=== PATIENT | female | born 1970 | race African-American/Black ===

== ENCOUNTER 2016-03-18 18:40 | Emergency (ER) | payer OTHER ==
[2016-03-18] MEDS ORDERED: DILAUDID IM ONE (20:45)
[2016-03-18] MEDS ORDERED: PHENERGAN IM ONE (20:46)
--- NOTE | 2016-03-18 20:51 | PROVIDER DOCUMENTATION ---
HPI-General Adult - General Chief Complaint: Extremity Pain Stated Complaint: LT LEG PAIN Time Seen by Provider: 03/18/16 20:37 Source: patient Allergies/Adverse Reactions: Patient Allergies Allergy/AdvReac Type Severity Reaction Status Date / Time butalbital [From Fioricet] Allergy Severe NAUSEA Verified 02/20/16 22:53 caffeine [From Fioricet] Allergy Severe NAUSEA Verified 02/20/16 22:53 cyclobenzaprine HCl * Allergy Severe ANAPHYLAXIS Verified 02/20/16 22:53 [From Flexeril] methocarbamol [From Robaxin] Allergy Severe ANAPHYLAXIS Verified 02/20/16 22:53 NSAIDS (Non-Steroidal Allergy Severe ANAPHYLAXIS Verified 02/20/16 22:53 Anti-Inflamma hydrocodone bitartrate * Allergy Intermediate RASH Verified 02/20/16 22:53 [From Lortab] ketorolac Allergy Mild HIVES Verified 02/20/16 22:53 meperidine HCl * Allergy Mild RASH Verified 02/20/16 22:53 [From Demerol] morphine Allergy Mild RASH Verified 02/20/16 22:53 naproxen sodium * Allergy Mild RASH Verified 02/20/16 22:53 [From Aleve] oxycodone HCl * Allergy Mild RASH Verified 02/20/16 22:53 [From Percocet] tramadol HCl * [From Ultram] Allergy Mild RASH Verified 02/20/16 22:53 adhesive Allergy Unknown RASH Verified 02/20/16 22:53 acetaminophen [From Tylenol] Allergy RASH Verified 02/20/16 22:53 tramadol Allergy RASH Verified 02/20/16 22:53 diphenhydramine HCl * AdvReac Severe VOMITING Verified 02/20/16 22:53 [From Tylenol PM] aspirin AdvReac Mild DIARRHEA Verified 02/20/16 22:53 ibuprofen [From Motrin] AdvReac Mild DIARRHEA Verified 02/20/16 22:53 ketorolac tromethamine * AdvReac Mild DIZZINESS Verified 02/20/16 22:53 [From Toradol] naproxen AdvReac Mild DIARRHEA Verified 02/20/16 22:53 ondansetron HCl * AdvReac NAUSEA Verified 02/20/16 22:53 [From Zofran (as hydrochloride)] Home Medications: Clonidine [Catapres] 0.3 mg PO BID 02/02/15 Alprazolam [Xanax] 1 mg PO QHS 01/25/16 Amlodipine Besylate 10 mg PO DAILY 02/10/16 - History of Present Illness -Gen Adult Nature of Presenting Problems: Pt is a 45 yof who presents to ER with CC of L inguinal pain that radiates to her L hip. Pt reports she has had this pain since January, Saw PCP earlier today and was sent to ER to have an X-ray of her L leg. Pt reports she has not taken any medicine for her leg pain and her PCP wanted to get an X-ray before prescribing any medicine. Location of Pain/Injury: reports: pelvis (L inguinal) Pain Radiation: reports: other (L hip) Quality of Pain: reports: cramping Severity: reports: mild Onset/Duration: reports: other ("Since January") Timing: reports: still present Modifying Factors: worse with: exercise, movement Associated Symptoms: reports: diarrhea, sensory/motor loss ("L leg goes numb when I walk too much") Review of Systems - Adult - REVIEW OF SYSTEMS - ADULT Constitutional: denies: chills, fever, fatique Eyes: reports: no symptoms reported Ears, Nose, Mouth & Throat: reports: no symptoms reported Cardiovascular: reports: no symptoms reported Respiratory: reports: no symptoms reported Gastrointestinal: reports: diarrhea. denies: abdominal pain, hematemesis, constipation, nausea, poor appetite, vomiting Genitourinary: reports: no symptoms reported Musculoskeletal: reports: frequent leg cramps, joint pain (L hip). denies: bone pain, back pain, joint swelling, muscle aches, muscle weakness, neck pain Integumentary: reports: no symptoms reported Neurological: reports: no symptoms reported Psychiatric: reports: no symptoms reported Endocrine: reports: no symptoms reported Hematologic/Lymphatic: reports: no symptoms reported Allergic/Immunologic: reports: no symptoms reported All Other Systems: Reviewed and Negative Past History - Adult - PAST MEDICAL HISTORY-ADULT Review of Records: reports: Nursing Assessment Review, Medications Reviewed Cardiovascular: reports: CHF, HTN Respiratory: reports: sleep apnea Psychiatric: reports: depression - PRIOR SURGERIES/PROCEDURES Surgical/Procedure History: reports: appendectomy, cholecystectomy, hysterectomy , BTL, , tonsillectomy, back/neck - IMMUNIZATION STATUS Childhood Immunizations: See Nurse Assessment Flu Vaccine: See Nurse Assessment Physical Exam-General - PHYSICAL EXAM-ADULT Initial Vital Signs Reviewed: Yes - CONSTITUTIONAL General Appearance: appears well, alert, no apparent distress - EYES Eyes: PERRL/EOMI, pink conjunctivae, fundi clear, no AV nicking - HEAD, EARS, NOSE, MOUTH & THROAT HENMT: normocephalic/atraumatic, moist mucous membranes, normal ENT inspection - NECK Neck: non-tender, full range of motion, supple - RESPIRATORY Respiratory: chest non-tender, lungs clear, normal breath sounds - CARDIOVASCULAR Cardiovascular: normal peripheral pulses, regular rate, rhythm - GASTROINTESTINAL (ABDOMEN) Abdominal Exam: normal bowel sounds, non tender, soft - LYMPHATIC Lymphatic: no adenopathy - MUSCULOSKELETAL Back Exam: no CVA tenderness, no vertebral tenderness Extremity: normal range of motion, normal gait, tenderness (Mild L inguinal tenderness) - SKIN Integumentary: normal color, normal turgor, warm/dry - NEUROLOGIC Neurologic: grossly normal, no motor/sensory deficits - PSYCHIATRIC Psych/Mental Status: normal mood/affect, normal thought content, normal thought process, oriented x 3 Progress - PLAN OF CARE/RESULTS Progress/Plan/Lab Results: Vital Signs - 24 hr 03/18/16 18:43 Temperature 97.5 F L Pulse Rate 85 Respiratory 20 Rate Blood Pressure 204/120 O2 Sat by Pulse 100 Oximetry Orders Category Date Time Status Hydromorphone [Dilaudid] Med 03/18/16 20:45 Discontinued 1 mg IM NOW ONE Promethazine [Phenergan] Med 03/18/16 20:46 Discontinued 25 mg IM NOW ONE Departure - Departure Time of Disposition Order: 20:51 DIAGNOSIS: Chronic leg pain Qualifiers: Laterality: left Qualified Code(s): M79.605 - Pain in left leg; G89.29 - Other chronic pain Disposition: HOME 01 Certified Medical Emergency: Emergent Condition: Stable Additional Instructions: ED Follow Up Instructions: You have been treated by a care provider in the Emergency Department. These instructions are being provided to you so you can have an understanding of how to care for yourself upon discharge. Upon discharge from the Emergency Department, you are responsible for making arrangements for follow-up care by a physician of your choice. Take all prescribed medications as directed. Return to the Emergency Department immediately for any new or worsening symptoms. You may call the Physician Referral phone number at [phone] to obtain a list of Physicians who are taking new patients. Attestation - Scribe Verification/Attestation Scribe:: Billy Zimmer Acting as Scribe for:: Jesse Curran Scribe documention review:: This chart was documented by a scribe and accurately reflects the service the provider performed and the decisions made by the provider.
[2016-03-18 21:42] VITALS: BP 180/96
== END 2016-03-18 21:42 | disposition home or self-care (01) ==
LOC: ED 18:40
DX: G89.29 Other chronic pain (principal); M79.605 Pain in left leg; R10.32 Left lower quadrant pain; M25.552 Pain in left hip; R19.7 Diarrhea, unspecified; R20.0 Anesthesia of skin; R25.2 Cramp and spasm; I10 Essential (primary) hypertension; Z79.899 Other long term (current) drug therapy
CPT/HCPCS: 96372; J1170; J2550

== ENCOUNTER 2016-05-12 17:02 | Emergency (ER) ==
[2016-05-12] MEDS ORDERED: CATAPRES ONE (17:20)
[2016-05-12] MEDS ORDERED: CATAPRES PO ONE (17:22)
--- NOTE | 2016-05-12 17:22 | PROVIDER DOCUMENTATION ---
HPI-Musculoskeletal Pain/Inj - GENERAL Chief Complaint: Groin Pain Stated Complaint: LEG PAIN Time Seen by Provider: 05/12/16 17:20 Source: patient - HX OF PRESENT ILLNESS-MUSKULOSKELTAL Nature of Presenting Problem: Pt c/o left inner thigh pain. Pt fell 3 days ago when her leg gave out on her and fell on left hip. No hip pain since fall. Patient states there is a knot to inside of her left thigh. No swelling to leg. Pt able to walk without any difficulty. Quality of Pain: reports: sharp, stabbing Severity in ED: moderate Onset/Duration: 3 days ago Timing: getting worse Modifying Factors: improves with: nothing Any recent injury?: Yes (Pt had sudden onset of pain to elft inner thigh that caused her to fall) Locality of Occurance: Other Similar Symptoms Previously?: No Recently seen or treated by another doctor?: No - FALL INJURY Location of Pain/Injury: reports: lower extremity Pain Radiation: reports: no radiation Reason for Fall: reports: other Symptoms prior to fall:: reports: none Loss of Consciousness: no loss of consciousness Injury Associated Symptoms: reports: muscle aches - BACK & NECK PAIN/INJURY Back/Neck Pain Location: denies: C-spine, T-spine, lumbar spine, sacrum, coccyx , paraspinous muscles, other Back/Neck Pain Radiation: denies: headache, shoulders, arm(s), Buttocks, Upper Legs, Lower Legs, Feet, Other Context / Method of Injury: denies: unknown, direct blow, fall, lifting, motor vehicle crash, overuse, prior injury, twisted, other Associated Symptoms: denies: denies symptoms, loss of bladder control, loss of bowel control, fever, lower back pain, muscle spasms, numbness in legs/feet, numbness in upper ext, sensory/motor loss, tingling in legs/feet, tingling in upper ext, weakness in legs/feet, weakness in upper ext, other - TRUNK INJURY Location of Injury(s)/Pain: denies: chest, abdomen, ribs, pelvis, extends to back, generalized, other Context / Method of Injury: denies: none, fall, blunt force, incision, stabbing , burn, GSW, seizure, became dizzy/fainted, MVC, recent physical stress, recent trauma history, other Associated Symptoms: denies: denies symptoms, anxiety, arm pain, back/neck pain , chest pain, nausea/vomiting, shortness of breath, sensory/motor loss, pain with breathing, other - HIP/PELVIS PAIN/INJURY Hip Pain Location: denies: hip (R), hip (L), pelvis, other Pain Radiation: denies: no radiation, abdomen, back, buttocks, feet, genitals, groin, flank, lower legs, periumbilical, upper legs, other Context / Method of Injury: denies: unknown, direct blow, fall, felt pop before fall, injury, motor vehicle crash, other Associated Symptoms: denies: denies symptoms, loss of bladder control, loss of bowel control, lower back pain, muscle spasms, numbness in legs/feet, sensory/ motor loss, tingling in legs/feet, weakness in legs/feet, other - LOWER EXTREMITY PAIN/INJURY Lower Extremities Pain: leg: left Context / Method of Injury: reports: fell Associated Symptoms: reports: muscle spasms - UPPER EXTREMITY PAIN/INJURY Context / Method of Injury: denies: unknown, assault, burn, direct blow, fell, incised, motor vehicle accident, sports injury, twisted, other Associated Symptoms: reports: muscle spasms Review of Systems - Adult - REVIEW OF SYSTEMS - ADULT Constitutional: reports: see HPI. denies: no symptoms reported, chills, fever, fatique, night sweats, weight gain, weight loss, other Eyes: reports: no symptoms reported. denies: see HPI, discharge, dry eyes, decreased vision, blurred vision, double vision, eye pain, redness, other Ears, Nose, Mouth & Throat: reports: no symptoms reported. denies: see HPI, ear discharge, ear pain, hearing loss, tinnitus, epistaxis, sinus problem, nose pain, loose teeth, mouth/dental pain, mouth swelling, hoarseness, throat pain, throat swelling, other Respiratory: reports: no symptoms reported. denies: see HPI, chronic cough, cough, dyspnea on exertion, excessive sputum production, hemoptysis, pleurisy, shortness of breath, wheezing, other Gastrointestinal: reports: no symptoms reported. denies: see HPI, abdominal pain, hematemesis, constipation, diarrhea, difficulty swallowing, frequent heartburn, nausea, poor appetite, rectal bleeding, vomiting, other Genitourinary: reports: no symptoms reported. denies: see HPI, dysuria, discharge, frequency, flank pain, frequent UTI's, hematuria, hesitency, incontinence, urinary retention, urgency, other Musculoskeletal: reports: see HPI Integumentary: reports: no symptoms reported. denies: see HPI, hives, hair loss , itching, mole changes, nail changes, rash, skin sores/ulcer, skin thickening, other Neurological: reports: no symptoms reported. denies: see HPI, ataxia, dizziness /vertigo, headache/migraines, loss of balance, numbness, paresthesia, seizure, slurred speech, syncope, tremors, other Psychiatric: reports: no symptoms reported. denies: see HPI, anxiety, anti- depressant use, alcohol/drug dependence, depression, emotional problems, insomnia, panic attacks, suicidal thoughts, other All Other Systems: Reviewed and Negative Past History - Adult - PAST MEDICAL HISTORY-ADULT Review of Records: reports: Old Records Reviewed, Nursing Assessment Review, Medications Reviewed, Social history reviewed & non-contributory. Major Childhood Illnesses: reports: denies history Cardiovascular: reports: CHF, HTN Respiratory: reports: sleep apnea Gastrointestinal: reports: denies history Obstetrical/Gynecological: reports: denies history Genitourinary: reports: denies history Musculoskeletal: reports: denies history Neurological: reports: denies history Psychiatric: reports: depression Endocrine/Immune: reports: denies history Other Conditions: reports: denies history - PRIOR SURGERIES/PROCEDURES Surgical/Procedure History: reports: appendectomy, cholecystectomy, hysterectomy , BTL, , tonsillectomy, back/neck - IMMUNIZATION STATUS Childhood Immunizations: See Nurse Assessment Flu Vaccine: See Nurse Assessment - FAMILY HISTORY Family History: reviewed, not pertinent Physical Exam-Injury Related - Physical Exam-Injury Related Initial Vital Signs Reviewed: Yes General Appearance: appears well, alert, no apparent distress Immobilization?: negative: backboard, C-collar, applied in ED, applied [employer]ER Eyes: PERRL/EOMI, pink conjunctivae. negative: fundi clear, no AV nicking, anisocoria, conjuctival exudate, EOM palsy, meningismus, pale conjunctivae, photophobia, sclera injected, scleral icterus, subconjunctival hemorrhage, sunken eyes, other Head, Ears, Nose, Mouth & Throat: normocephalic/atraumatic, moist mucous membranes, normal ENT inspection, TMs normal, pharynx normal. negative: angioedema, dental decay, hearing deficit, pharyngeal erythema, tonsillar exudate, TM abnormal, TM obscurred by cerumen, frontal tenderness, maxillary tenderness, other Neck: non-tender, full range of motion, supple, normal inspection. negative: pain with axial compression, Brudzinski's sign, carotid bruit, C-spine tenderness, decresed ROM, ecchymosis, limited range of motion, lymphadenopathy, muscle spasm, nexus criteria negative, pain on movement, subcutaneous emphysema , swelling, trachial deviation, tender lateral, tender midline, thyromegaly, vertebral point tenderness, other Respiratory: chest non-tender, lungs clear, normal breath sounds, no pleuratic chest pain, no respiratory distress, no accessory muscle use. negative: respiratory distress, decreased breath sounds, accessory muscle use, crackles, rales, rhonchi, stridor, wheezing, dull on percussion, prolonged expiration, pain on inspiration, pleural rub, retractions, splinting, decreased rate, increased rate, crepitus, ecchymosis, flail chest, palpable fracture, paradoxical movements, rib tenderness, seat belt bruising, tenderness, other Cardiovascular: normal peripheral pulses, regular rate, rhythm, no edema, no gallop, no JVD, no murmur. negative: JVD, bradycardia, tachycardia, diastolic murmur, systolic murmur, gallop/S3, gallop/S4, extra beats, friction rub, irregularly irregular, PMI displaced laterally, other Chest/Breast: deferred Abdominal Exam: normal bowel sounds, non tender, soft, no organomegaly, no pulsatile mass. negative: abdominal bruit, abnormal bowel sounds, distended, guarding, rigid, rebound, tenderness, hernia, mass, hepatomegaly, spleenomegaly , McBurney's point tenderness, Tejeda's sign, obturator sign, prominent aortic pulsations, psoas, Rovsing's sign, other Lymphatic: no adenopathy Back Exam: normal inspection, no CVA tenderness, no vertebral tenderness. negative: CVA tenderness, decreased range of motion, ecchymosis, kyphosis, lordosis, muscle spasm, scoliosis, swelling, vertebral tenderness, other Extremity: normal range of motion, no pedal edema, no calf tenderness, normal capillary refill, erythema, swelling, tenderness Integumentary: normal color, warm/dry. negative: blanching, cyanosis, diaphoresis, decubitus, ecchymosis, embolic lesions, erythema, signs of IVDA, jaundice, mottled, pallor, petechiae, purpura, rash, swelling, tenderness, warm , zoster-like rash, abrasion, ashen, blistered, contusion(s), arguello red, crepitus, laceration, puncture wound(s), white, other Neurologic: grossly normal, no motor/sensory deficits. 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 negative: disoriented x 3, anxious, disheveled, depressed affect, paranoid, tearful, other - Glascow Coma Score Best Eye Response ([place]): (4) open spontaneously Best Verbal Response ([place]): (5) oriented Best Motor Response ([place]): (6) obeys commands [place] Total: 15 Progress - PLAN OF CARE/RESULTS Progress/Plan/Lab Results: Orders Category Date Time Status Clonidine [Catapres] Med 05/12/16 17:20 Discontinued 0.1 mg .ROUTE .STK-MED ONE Clonidine [Catapres] Med 05/12/16 17:22 Discontinued 0.1 mg PO NOW ONE Hydromorphone [Dilaudid] Med 05/12/16 17:27 Discontinued 1 mg IM NOW ONE Hydromorphone [Dilaudid] Med 05/12/16 18:56 Discontinued 1 mg IM NOW ONE Promethazine [Phenergan] Med 05/12/16 17:27 Discontinued 25 mg IM NOW ONE Promethazine [Phenergan] Med 05/12/16 18:57 Discontinued 25 mg IM NOW ONE Venous U/S Left Leg [CV] Stat Ther 05/12/16 17:54 Completed Vital Signs Temp Pulse Resp BP Pulse Ox 05/12/16 17:06 98 F 74 19 199/121 100 butalbital [From Fioricet] Allergy (Severe, Verified 05/12/16 17:15) NAUSEA caffeine [From Fioricet] Allergy (Severe, Verified 05/12/16 17:15) NAUSEA cyclobenzaprine HCl * [From Flexeril] Allergy (Severe, Verified 05/12/16 17:15) ANAPHYLAXIS methocarbamol [From Robaxin] Allergy (Severe, Verified 05/12/16 17:15) ANAPHYLAXIS NSAIDS (Non-Steroidal Anti-Inflamma Allergy (Severe, Verified 05/12/16 17:15) ANAPHYLAXIS hydrocodone bitartrate * [From Lortab] Allergy (Intermediate, Verified 05/12/16 17:15) RASH ketorolac Allergy (Mild, Verified 05/12/16 17:15) HIVES meperidine HCl * [From Demerol] Allergy (Mild, Verified 05/12/16 17:15) RASH morphine Allergy (Mild, Verified 05/12/16 17:15) RASH naproxen sodium * [From Aleve] Allergy (Mild, Verified 05/12/16 17:15) RASH oxycodone HCl * [From Percocet] Allergy (Mild, Verified 05/12/16 17:15) RASH tramadol HCl * [From Ultram] Allergy (Mild, Verified 05/12/16 17:15) RASH adhesive Allergy (Unknown, Verified 05/12/16 17:15) RASH acetaminophen [From Tylenol] Allergy (Verified 05/12/16 17:15) RASH tramadol Allergy (Verified 05/12/16 17:15) RASH diphenhydramine HCl * [From Tylenol PM] Adverse Reaction (Severe, Verified 05/12 17:15) VOMITING aspirin Adverse Reaction (Mild, Verified 05/12/16 17:15) DIARRHEA ibuprofen [From Motrin] Adverse Reaction (Mild, Verified 05/12/16 17:15) DIARRHEA ketorolac tromethamine * [From Toradol] Adverse Reaction (Mild, Verified 17:15) DIZZINESS naproxen Adverse Reaction (Mild, Verified 05/12/16 17:15) DIARRHEA ondansetron HCl * [From Zofran (as hydrochloride)] Adverse Reaction (Verified 17:15) NAUSEA Amlodipine Besylate 10 mg PO DAILY 02/10/16 Carvedilol 25 mg PO BID 03/25/16 Triamterene/Hydrochlorothiazid [Triamterene-Hctz 37.5-25 mg Cp] 1 each PO DAILY 03/25/16 Duloxetine HCl 60 mg PO DAILY 05/12/16 Hydrocodone/APAP 7.5 mg/325 mg [[place]-7.5] 1 each PO Q6H PRN PRN #10 tablet 04/29 Omeprazole 40 mg PO DAILY 05/12/16 Valsartan 40 mg PO DAILY 05/12/16 - ULTRASOUND (By Radiology) 1 US Study: Lower Ext Impression: Normal (No DVT read by Radiologist) Departure - Departure Time of Disposition Order: 18:54 DIAGNOSIS: Muscle strain Disposition: HOME 01 Certified Medical Emergency: Emergent Condition: Stable Additional Instructions: ED Follow Up Instructions: You have been treated by a care provider in the Emergency Department. These instructions are being provided to you so you can have an understanding of how to care for yourself upon discharge. Upon discharge from the Emergency Department, you are responsible for making arrangements for follow-up care by a physician of your choice. Take all prescribed medications as directed. Return to the Emergency Department immediately for any new or worsening symptoms. You may call the Physician Referral phone number at [phone] to obtain a list of Physicians who are taking new patients. Prescriptions: Hydrocodone/APAP 7.5 mg/325 mg [[place]-7.5] 1 each PO Q6H PRN PRN #10 tablet PRN Reason: Pain Referrals: Chhaya Smalls CRNP [Primary Care Provider] - Forms: Return to School/Parent Work Instructions: Acetaminophen; Hydrocodone tablets or capsules, Muscle Strain Attestation - Physician/ REMEDIOS Attestation Patient care was provided by Advanced Practice Provider:: Yes Advanced Practice Provider:: Jesse Rios Advanced Practice Provider documentation review:: The Mid-level provider documentation, treatment plan and medical decision making was reviewed by the physician who agrees with all treatment and medical decision making by the [facility]. Physician Attestation - Physician Attestation I, the provider, attest to the following statement:: Jesse Rios Physician documentation Attestation:: This documentation recorded by the scribe accurately reflects the service I personally performed and the decisions made by me.
[2016-05-12] MEDS ORDERED: DILAUDID IM ONE ×2 (17:27→18:56)
[2016-05-12] MEDS ORDERED: PHENERGAN IM ONE ×2 (17:27→18:57)
[2016-05-12 19:40] VITALS: BP 160/104
--- NOTE | 2016-05-16 07:22 | Extremity Venous Study ---
PROCEDURE NAME: Venous U/S Left Leg - 05/12/2016 LEFT LOWER EXTREMITY VENOUS DOPPLER ULTRASOUND: FINDINGS: There is good flow and compressibility of the veins of the left lower extremity. No thrombus. Normal augmentation. IMPRESSION: No deep vein thrombosis within the left lower extremity.
== END 2016-05-12 19:39 | disposition home or self-care (01) ==
LOC: P.ED 17:02
DX: S76.912A Strain of unspecified muscles, fascia and tendons at thigh level, left thigh, initial encounter (principal); M79.652 Pain in left thigh; R22.42 Localized swelling, mass and lump, left lower limb; M79.1 Myalgia; M62.838 Other muscle spasm; I10 Essential (primary) hypertension; I50.9 Heart failure, unspecified; Z79.899 Other long term (current) drug therapy; W19.XXXA Unspecified fall, initial encounter
CPT/HCPCS: 93971; 96372; J1170; J2550

== ENCOUNTER 2016-05-25 09:08 | Emergency (ER) ==
[2016-05-25] MEDS ORDERED: PHENERGAN IM ONE (10:46)
[2016-05-25] MEDS ORDERED: DILAUDID IM ONE (10:46)
--- NOTE | 2016-05-25 10:52 | PROVIDER DOCUMENTATION ---
HPI-Abdominal Pain/GI Problem - General Source: patient - History of Present Illness-ABD Nature of Presenting Problems: 46 y/o AAF s/p EGD performed yesterday in [place]. Apparently she has masses that have been removed from the abdomen, but laproscopically and through the EGD performed yesterday. She does not know if the masses are in the liver or and area of the stomach. States also have substernal chest pain without radiation. she has been having these symptoms since waking up from the egd. Having nausea and vomiting, streaked with blood at times. Denies changes in BM. states she did not have c-scope done with with. Denies fevers, or difficulty breathing. She cannot articulate what exactly has been removed in previous surgeries, but states they are not cancer <Xiomara Felix - Last Filed: 05/25/16 11:29> <Win Best - Last Filed: 05/25/16 11:36> - General Chief Complaint: Chest Pain Stated Complaint: VOMITING/POST OP COMPLAINT Time Seen by Provider: 05/25/16 10:02 Allergies/Adverse Reactions: Patient Allergies Allergy/AdvReac Type Severity Reaction Status Date / Time butalbital [From Fioricet] Allergy Severe NAUSEA Verified 05/25/16 09:48 caffeine [From Fioricet] Allergy Severe NAUSEA Verified 05/25/16 09:48 cyclobenzaprine HCl * Allergy Severe ANAPHYLAXIS Verified 05/25/16 09:48 [From Flexeril] methocarbamol [From Robaxin] Allergy Severe ANAPHYLAXIS Verified 05/25/16 09:48 NSAIDS (Non-Steroidal Allergy Severe ANAPHYLAXIS Verified 05/25/16 09:48 Anti-Inflamma hydrocodone bitartrate * Allergy Intermediate RASH Verified 05/25/16 09:48 [From Lortab] ketorolac Allergy Mild HIVES Verified 05/25/16 09:48 meperidine HCl * Allergy Mild RASH Verified 05/25/16 09:48 [From Demerol] morphine Allergy Mild RASH Verified 05/25/16 09:48 naproxen sodium * Allergy Mild RASH Verified 05/25/16 09:48 [From Aleve] oxycodone HCl * Allergy Mild RASH Verified 05/25/16 09:48 [From Percocet] tramadol HCl * [From Ultram] Allergy Mild RASH Verified 05/25/16 09:48 adhesive Allergy Unknown RASH Verified 05/25/16 09:48 acetaminophen [From Tylenol] Allergy RASH Verified 05/25/16 09:48 tramadol Allergy RASH Verified 05/25/16 09:48 diphenhydramine HCl * AdvReac Severe VOMITING Verified 05/25/16 09:48 [From Tylenol PM] aspirin AdvReac Mild DIARRHEA Verified 05/25/16 09:48 ibuprofen [From Motrin] AdvReac Mild DIARRHEA Verified 05/25/16 09:48 ketorolac tromethamine * AdvReac Mild DIZZINESS Verified 05/25/16 09:48 [From Toradol] naproxen AdvReac Mild DIARRHEA Verified 05/25/16 09:48 ondansetron HCl * AdvReac NAUSEA Verified 05/25/16 09:48 [From Zofran (as hydrochloride)] Home Medications: Home Medication List Medication Instructions Recorded Confirmed Last Taken Type Amlodipine Besylate 10 mg PO DAILY 02/10/16 05/12/16 03/25/16 History Carvedilol 25 mg PO BID 03/25/16 05/12/16 03/25/16 History Triamterene/Hydrochlorothiazid 1 each PO DAILY 03/25/16 03/25/16 History [Triamterene-Hctz 37.5-25 mg Cp] Duloxetine HCl 60 mg PO DAILY 05/12/16 05/12/16 Unknown History Hydrocodone/APAP 7.5 mg/325 mg 1 each PO Q6H PRN PRN #10 tablet 05/12/16 Unknown Rx [[place]-7.5] Omeprazole 40 mg PO DAILY 05/12/16 05/12/16 Unknown History Valsartan 40 mg PO DAILY 05/12/16 05/12/16 05/12/16 History Dicyclomine [Bentyl] 10 mg PO TID AC #30 capsule 05/25/16 Unknown Rx Promethazine [Phenergan] 25 mg PO Q6H PRN PRN #20 tablet 05/25/16 Unknown Rx Review of Systems - Adult - REVIEW OF SYSTEMS - ADULT Constitutional: reports: no symptoms reported. denies: chills, fever, fatique Eyes: reports: no symptoms reported. denies: decreased vision, blurred vision, double vision, eye pain Ears, Nose, Mouth & Throat: reports: no symptoms reported. denies: ear pain, nose pain, throat pain Cardiovascular: reports: see HPI, chest pain. denies: irregular heart rate, palpitations Respiratory: reports: no symptoms reported. denies: cough, shortness of breath , wheezing Gastrointestinal: reports: see HPI, abdominal pain, nausea, poor appetite, vomiting. denies: diarrhea Genitourinary: reports: no symptoms reported. denies: dysuria, discharge, frequency, incontinence Musculoskeletal: reports: no symptoms reported. denies: bone pain, back pain, muscle aches Integumentary: reports: no symptoms reported. denies: rash Neurological: reports: no symptoms reported. denies: headache/migraines Psychiatric: reports: no symptoms reported Endocrine: reports: no symptoms reported Hematologic/Lymphatic: reports: no symptoms reported Allergic/Immunologic: reports: no symptoms reported All Other Systems: Reviewed and Negative <Xiomara Felix - Last Filed: 05/25/16 11:29> Past History - Adult - PAST MEDICAL HISTORY-ADULT Review of Records: reports: Old Records Reviewed, Nursing Assessment Review, Medications Reviewed Major Childhood Illnesses: reports: denies history Cardiovascular: reports: CHF, HTN Respiratory: reports: sleep apnea Gastrointestinal: reports: other Obstetrical/Gynecological: reports: denies history Genitourinary: reports: denies history Musculoskeletal: reports: denies history Neurological: reports: denies history Psychiatric: reports: depression Endocrine/Immune: reports: denies history Other Conditions: reports: denies history - PRIOR SURGERIES/PROCEDURES Surgical/Procedure History: reports: appendectomy, EGD, cholecystectomy, hysterectomy, BTL, , tonsillectomy, back/neck - IMMUNIZATION STATUS Childhood Immunizations: See Nurse Assessment Flu Vaccine: See Nurse Assessment - FAMILY HISTORY Family History: reviewed, not pertinent - SOCIAL HISTORY Smoking: less than 1 pack/day Provider spent 3-5 mins advising pt. on dangers of tobacco.: Discussed manners to quit use, and f/u contacts for add'l counseling. Substance Use: none/never Alcohol Use Frequency: never <Xiomara Felix - Last Filed: 05/25/16 11:29> Physical Exam-General - PHYSICAL EXAM-ADULT Initial Vital Signs Reviewed: Yes - CONSTITUTIONAL General Appearance: appears well, alert, no apparent distress - EYES Eyes: PERRL/EOMI, pink conjunctivae - HEAD, EARS, NOSE, MOUTH & THROAT HENMT: normocephalic/atraumatic, moist mucous membranes - NECK Neck: non-tender, full range of motion, supple, normal inspection - RESPIRATORY Respiratory: chest non-tender, lungs clear, normal breath sounds, no pleuratic chest pain, no respiratory distress, no accessory muscle use. negative: respiratory distress, decreased breath sounds, accessory muscle use, crackles, rales, rhonchi, wheezing - CARDIOVASCULAR Cardiovascular: normal peripheral pulses, regular rate, rhythm - GASTROINTESTINAL (ABDOMEN) Abdominal Exam: normal bowel sounds, soft, no organomegaly, no pulsatile mass, tenderness (generalized). negative: abdominal bruit, abnormal bowel sounds, distended, guarding, rigid, rebound - MUSCULOSKELETAL Extremity: normal gait Peripheral Pulses: radial (R): 2+, radial (L): 2+, dorsalis-pedis (R): 2+, dorsalis-pedis (L): 2+ - SKIN Integumentary: normal color, normal turgor, warm/dry - NEUROLOGIC Neurologic: grossly normal, no motor/sensory deficits - PSYCHIATRIC Psych/Mental Status: normal mood/affect, normal thought content, normal thought process, oriented x 3 <Xiomara Felix - Last Filed: 05/25/16 11:29> Progress - PLAN OF CARE/RESULTS Progress/Plan/Lab Results: Vital Signs Temp Pulse Resp BP Pulse Ox 05/25/16 09:42 97.3 F L 85 14 189/113 96 butalbital [From Fioricet] Allergy (Severe, Verified 05/25/16 09:48) NAUSEA caffeine [From Fioricet] Allergy (Severe, Verified 05/25/16 09:48) NAUSEA cyclobenzaprine HCl * [From Flexeril] Allergy (Severe, Verified 05/25/16 09:48) ANAPHYLAXIS methocarbamol [From Robaxin] Allergy (Severe, Verified 05/25/16 09:48) ANAPHYLAXIS NSAIDS (Non-Steroidal Anti-Inflamma Allergy (Severe, Verified 05/25/16 09:48) ANAPHYLAXIS hydrocodone bitartrate * [From Lortab] Allergy (Intermediate, Verified 05/25/16 09:48) RASH ketorolac Allergy (Mild, Verified 05/25/16 09:48) HIVES meperidine HCl * [From Demerol] Allergy (Mild, Verified 05/25/16 09:48) RASH morphine Allergy (Mild, Verified 05/25/16 09:48) RASH naproxen sodium * [From Aleve] Allergy (Mild, Verified 05/25/16 09:48) RASH oxycodone HCl * [From Percocet] Allergy (Mild, Verified 05/25/16 09:48) RASH tramadol HCl * [From Ultram] Allergy (Mild, Verified 05/25/16 09:48) RASH adhesive Allergy (Unknown, Verified 05/25/16 09:48) RASH acetaminophen [From Tylenol] Allergy (Verified 05/25/16 09:48) RASH tramadol Allergy (Verified 05/25/16 09:48) RASH diphenhydramine HCl * [From Tylenol PM] Adverse Reaction (Severe, Verified 05/25 09:48) VOMITING aspirin Adverse Reaction (Mild, Verified 05/25/16 09:48) DIARRHEA ibuprofen [From Motrin] Adverse Reaction (Mild, Verified 05/25/16 09:48) DIARRHEA ketorolac tromethamine * [From Toradol] Adverse Reaction (Mild, Verified 09:48) DIZZINESS naproxen Adverse Reaction (Mild, Verified 05/25/16 09:48) DIARRHEA ondansetron HCl * [From Zofran (as hydrochloride)] Adverse Reaction (Verified 09:48) NAUSEA Amlodipine Besylate 10 mg PO DAILY 02/10/16 Carvedilol 25 mg PO BID 03/25/16 Triamterene/Hydrochlorothiazid [Triamterene-Hctz 37.5-25 mg Cp] 1 each PO DAILY 03/25/16 Duloxetine HCl 60 mg PO DAILY 05/12/16 Hydrocodone/APAP 7.5 mg/325 mg [[place]-7.5] 1 each PO Q6H PRN PRN #10 tablet 04/29 Omeprazole 40 mg PO DAILY 05/12/16 Valsartan 40 mg PO DAILY 05/12/16 Laboratory 05/25/16 05/25/16 05/25/16 10:53 10:53 10:53 WBC 8.09 RBC 5.38 Hgb 14.9 Hct 45.4 MCV 84.4 MCH 27.7 MCHC 32.8 L RDW Std Deviation 14.6 H Plt Count 277 MPV 9.3 Immature Gran % (Auto) 0.2 Neut % (Auto) 62.0 Lymph % (Auto) 29.4 [place] % (Auto) 7.3 Eos % (Auto) 0.9 Baso % (Auto) 0.2 Immature Gran # (Auto) 0.02 Neut # (Auto) 5.01 Lymph # (Auto) 2.38 [place] # (Auto) 0.59 Eos # (Auto) 0.07 Baso # (Auto) 0.02 Sodium 137 Potassium 3.4 L Chloride 99 Carbon Dioxide 28 Anion Gap 11 BUN 8 Creatinine 0.6 Estimated GFR/1.73 m2 > 60 BUN/Creatinine Ratio 13 Glucose 107 H Calculated Osmolality 273 Calcium 9.0 Total Bilirubin 0.60 AST 28 ALT 26 Alkaline Phosphatase 75 Troponin T < 0.010 Total Protein 7.8 Albumin 4.5 Globulin 3.0 Albumin/Globulin Ratio 1.0 Orders Category Date Time Status CHEST-2 VIEWS [RAD] Stat Exams 05/25/16 10:15 Draft CBC WITH ELECTRONIC DIFF [HEME] Stat Lab 05/25/16 10:53 Completed COMPREHENSIVE METABOLIC PANEL [CHEM] Stat Lab 05/25/16 10:53 Completed TROPONIN T Stat Lab 05/25/16 10:53 Completed Hydromorphone [Dilaudid] Med 05/25/16 10:46 Discontinued 0.5 mg IM NOW ONE Promethazine [Phenergan] Med 05/25/16 10:46 Discontinued 25 mg IM NOW ONE EKG [EKG] Stat Ther 05/25/16 10:15 Draft Tried to obtain records from [facility]. Waited 2 hours and no records were obtained. - XRAY 1 XRAY: Bilateral XRAY Study: Chest Impression: Normal (nad per Dr. Vidal, radiology) <Xiomara Felix - Last Filed: 05/25/16 11:29> - EKG 1 Time of EKG reading by physician:: 11:35 EKG Read and Signed by:: Brodie Garcia Rate: 70 [place]: normal QRS: normal OR Interval: normal <Win Best - Last Filed: 05/25/16 11:36> Departure - Departure Time of Disposition Order: 11:30 Certified Medical Emergency: Emergent <Xiomara Felix - Last Filed: 05/25/16 11:29> <EstephaniaWin - Last Filed: 05/25/16 11:36> - Departure DIAGNOSIS: Post-operative pain Disposition: HOME 01 Condition: Stable Additional Instructions: Follow up with the physician that did the procedure in [place] ED Follow Up Instructions: You have been treated by a care provider in the Emergency Department. These instructions are being provided to you so you can have an understanding of how to care for yourself upon discharge. Upon discharge from the Emergency Department, you are responsible for making arrangements for follow-up care by a physician of your choice. Take all prescribed medications as directed. Return to the Emergency Department immediately for any new or worsening symptoms. You may call the Physician Referral phone number at [phone] to obtain a list of Physicians who are taking new patients. Prescriptions: Dicyclomine [Bentyl] 10 mg PO TID AC #30 capsule Promethazine [Phenergan] 25 mg PO Q6H PRN PRN #20 tablet PRN Reason: Nausea Referrals: Chhaya Smalls CRNP [Primary Care Provider] - Attestation - Physician/ REMEDIOS Attestation Patient care was provided by Advanced Practice Provider:: Yes Advanced Practice Provider:: Xiomara Felix Advanced Practice Provider documentation review:: The Mid-level provider documentation, treatment plan and medical decision making was reviewed by the physician who agrees with all treatment and medical decision making by the MLP. <Xiomara Felix - Last Filed: 05/25/16 11:29> Physician Attestation
[2016-05-25 10:57] LABS: MANUAL DIFF NEEDED? NO
[2016-05-25 10:59] LABS: BASO% 0.2 % (0.0-0.8); EOS# 0.07 X1000 (0.0-0.7); EOS% 0.9 % (0.0-10.0); HEMATOCRIT 45.4 % (37.0-47.0); HEMOGLOBIN 14.9 g/dL (12.0-16.0); IMM GRAN# 0.02 X1000 (0.0-0.04); IMM GRAN% 0.2 % (0.0-0.5); LYMPH# 2.38 X1000 (1.2-3.4); LYMPH% 29.4 % (20.5-51.1); MCH 27.7 PG (27-31); MCHC 32.8 g/dL (33-37); MCV 84.4 FL (81-99); MONO# 0.59 X1000 (0.11-0.59); MONO% 7.3 % (1.7-9.3); MPV 9.3 FL (7.4-10.4); PLT 277 X1000 (130-400); RBC 5.38 XMIL (4.2-5.4)
--- NOTE | 2016-05-25 11:22 | Diag Imaging Result Document ---
PROCEDURE NAME: CHEST-2 VIEWS - 05/25/2016 FRONTAL AND LATERAL CHEST, TWO VIEWS: COMPARISON: 04/08/2016. FINDINGS: The lungs are well expanded. The heart is not enlarged. The vessels are not distended. No pneumonia. No pleural effusions. No free air beneath the diaphragm. IMPRESSION: No acute abnormality.
--- NOTE | 2016-05-25 11:25 | EKG Report ---
Test Performed on : 05/25/2016 10:50:47 AM Test Reason : cp Blood Pressure : / mmHG Vent. Rate : 070 BPM Atrial Rate : 070 BPM P-R Int : 168 ms QRS Dur : 094 ms QT Int : 450 ms P-R-T Axes : 057 014 083 degrees QTc Int : 486 ms Normal sinus rhythm. Prolonged QT Abnormal ECG When compared with ECG of 25-MAR-2016 14:16, No significant change was found Unconfirmed Result
[2016-05-25 11:26] LABS: AGAP 11; ALBUMIN 4.5 g/dL (3.5-5.0); ALKALINE PHOSPHATASE 75 U/L (32-104); BUN 8 mg/dL (8-22); CHLORIDE 99 mmol/L (98-107); COSMO 273; GOT 28 U/L (10-30); GPT 26 U/L (10-36); POTASSIUM 3.4 mmol/L (3.5-5.1); SODIUM 137 mmol/L (136-145); TCO2 28 mmol/L (25-35); TOTAL PROTEIN 7.8 g/dL (6.3-8.3)
[2016-05-25 11:57] VITALS: BP 185/110
== END 2016-05-25 11:55 | disposition home or self-care (01) ==
LOC: P.ED 09:08
DX: G89.18 Other acute postprocedural pain (principal); R07.89 Other chest pain; R04.2 Hemoptysis; R10.9 Unspecified abdominal pain; I50.9 Heart failure, unspecified; I10 Essential (primary) hypertension; F17.210 Nicotine dependence, cigarettes, uncomplicated; Z79.899 Other long term (current) drug therapy; Z71.6 Tobacco abuse counseling; Z98.890 Other specified postprocedural states
CPT/HCPCS: 36415; 71020; 80053; 84484; 85025; 93005; 96372; J1170; J2550

== ENCOUNTER 2018-07-25 16:41 | Inpatient (IN) ==
--- NOTE | 2018-07-25 17:35 | EKG Report ---
Test Performed on : 07/25/2018 5:03:18 PM Test Reason : high blood pressure Blood Pressure : / mmHG Vent. Rate : 081 BPM Atrial Rate : 081 BPM P-R Int : 182 ms QRS Dur : 102 ms QT Int : 416 ms P-R-T Axes : 052 020 086 degrees QTc Int : 483 ms Normal sinus rhythm. Possible Left atrial enlargement Prolonged QT Abnormal ECG When compared with ECG of 13-FEB-2017 14:34, QRS duration has increased Unconfirmed Result
--- NOTE | 2018-07-25 17:43 | ED EKG INTERP ---
This chart was entered by Spring Caraballo Scribe, acting as scribe for Maicol Huff MD. EKG Interpretation - EKG Time of EKG reading by physician:: 17:03 EKG Read and Signed by:: Maicol Huff EKG Interpretation (*Must complete 3 of following elements*): Abnormal Rate: 81 Rhythm: NSR [place]: normal QRS: other (possible L atrial enlargement) SC Interval: prolonged ST Wave: normal Attestation - Physician/ REMEDIOS Attestation Patient care was provided by Advanced Practice Provider:: Yes Advanced Practice Provider:: Susan Gaspar Advanced Practice Provider documentation review:: The Mid-level provider documentation, treatment plan and medical decision making was reviewed by the physician who agrees with all treatment and medical decision making by the MLP. The physician spent face to face time with patient:: No Advanced Practice Provider documentation review:: Supervising physician onsite and consulted in the evaluation and care of this patient. The physician did not have a face to face encounter with the patient. This chart was documented by the indicated scribe, (Spring Caraballo Scribe) and accurately reflects the services I performed and decisions made by me, Maicol Huff MD, as attested by the provider's signature.
[2018-07-25] MEDS ORDERED: APRESOLINE IV ONE ×3 (18:12→19:57)
--- NOTE | 2018-07-25 18:19 | PROVIDER DOCUMENTATION ---
HPI-General Adult - General Chief Complaint: B/P Problems Stated Complaint: HIGH BP Time Seen by Provider: 07/25/18 17:29 Source: patient Allergies/Adverse Reactions: Patient Allergies Allergy/AdvReac Type Severity Reaction Status Date / Time butalbital [From Fioricet] Allergy Severe NAUSEA Verified 01/09/17 13:39 caffeine [From Fioricet] Allergy Severe NAUSEA Verified 01/09/17 13:39 cyclobenzaprine HCl * Allergy Severe ANAPHYLAXIS Verified 01/09/17 13:39 [From Flexeril] methocarbamol [From Robaxin] Allergy Severe ANAPHYLAXIS Verified 01/09/17 13:39 NSAIDS (Non-Steroidal Allergy Severe ANAPHYLAXIS Verified 01/09/17 13:39 Anti-Inflamma hydrocodone bitartrate * Allergy Intermediate RASH Verified 01/09/17 13:39 [From Lortab] ketorolac Allergy Mild HIVES Verified 01/09/17 13:39 meperidine HCl * Allergy Mild RASH Verified 01/09/17 13:39 [From Demerol] morphine Allergy Mild RASH Verified 01/09/17 13:39 naproxen sodium * Allergy Mild RASH Verified 01/09/17 13:39 [From Aleve] oxycodone HCl * Allergy Mild RASH Verified 01/09/17 13:39 [From Percocet] tramadol HCl * [From Ultram] Allergy Mild RASH Verified 01/09/17 13:39 adhesive Allergy Unknown RASH Verified 01/09/17 13:39 acetaminophen [From Tylenol] Allergy RASH Verified 01/09/17 13:39 tramadol Allergy RASH Verified 01/09/17 13:39 diphenhydramine HCl * AdvReac Severe VOMITING Verified 01/09/17 13:39 [From Tylenol PM] aspirin AdvReac Mild DIARRHEA Verified 01/09/17 13:39 ibuprofen [From Motrin] AdvReac Mild DIARRHEA Verified 01/09/17 13:39 ketorolac tromethamine * AdvReac Mild DIZZINESS Verified 01/09/17 13:39 [From Toradol] naproxen AdvReac Mild DIARRHEA Verified 01/09/17 13:39 ondansetron HCl * AdvReac NAUSEA Verified 01/09/17 13:39 [From Zofran (as hydrochloride)] Home Medications: Home Medication List Medication Instructions Recorded Confirmed Last Taken Type Amlodipine Besylate 10 mg PO DAILY 02/10/16 01/09/17 01/09/17 History Carvedilol 25 mg PO BID 03/25/16 01/09/17 01/09/17 History Valsartan 40 mg PO DAILY 05/12/16 01/09/17 01/09/17 History Hydrochlorothiazide 0 mg PO DAILY 11/16/16 01/09/17 01/09/17 History Acetaminophen with Codeine 1 each PO Q4H PRN PRN #12 tablet 01/09/17 Unknown Rx [Tylenol with Codeine #3] - History of Present Illness -Gen Adult Nature of Presenting Problems: Patient is a 48 yobf with a hx of CHF who c/o elevated BP, dizziness, headache, palpitations, chest tightness, and left arm pain that began today. Saw her joinery machinist Dr. Weinstein today who adjusted her medications and scheduled for pt to wear a Holter monitor due to the chest pain she was having. She also reports increase in SOB with exertion and orthopnea x 1 week. She denies any other symptoms and is non-toxic in appearance. Review of Systems - Adult - REVIEW OF SYSTEMS - ADULT Constitutional: reports: no symptoms reported. denies: fever Eyes: reports: no symptoms reported Ears, Nose, Mouth & Throat: reports: no symptoms reported Cardiovascular: reports: see HPI, chest pain, orthopnea. denies: syncope Respiratory: reports: see HPI, dyspnea on exertion, shortness of breath. denies: wheezing Gastrointestinal: reports: no symptoms reported. denies: diarrhea, nausea, vomiting Genitourinary: reports: no symptoms reported Musculoskeletal: reports: no symptoms reported Integumentary: reports: no symptoms reported Neurological: reports: see HPI, dizziness/vertigo, headache/migraines. denies: ataxia, loss of balance, numbness, paresthesia, seizure, slurred speech, syncope Psychiatric: reports: no symptoms reported Endocrine: reports: no symptoms reported Hematologic/Lymphatic: reports: no symptoms reported Allergic/Immunologic: reports: no symptoms reported All Other Systems: Reviewed and Negative Past History - Adult - PAST MEDICAL HISTORY-ADULT Review of Records: reports: Nursing Assessment Review, Medications Reviewed, Social history reviewed & non-contributory. Major Childhood Illnesses: reports: denies history Cardiovascular: reports: CHF, HTN Respiratory: reports: sleep apnea Gastrointestinal: reports: other Obstetrical/Gynecological: reports: denies history Genitourinary: reports: denies history Musculoskeletal: reports: denies history Neurological: reports: denies history Psychiatric: reports: depression Endocrine/Immune: reports: denies history Other Conditions: reports: denies history - PRIOR SURGERIES/PROCEDURES Surgical/Procedure History: reports: appendectomy, EGD, cholecystectomy, pacemaker (twice), hysterectomy, BTL, , tonsillectomy, back/neck (4 back sx and 2 neck sx) - IMMUNIZATION STATUS Childhood Immunizations: See Nurse Assessment Flu Vaccine: See Nurse Assessment - FAMILY HISTORY Family History: reviewed, not pertinent - SOCIAL HISTORY Smoking: cigarettes, less than 1 pack/day Physical Exam-General - PHYSICAL EXAM-ADULT Initial Vital Signs Reviewed: Yes - CONSTITUTIONAL General Appearance: alert, no apparent distress. negative: lethargic, slow to respond - EYES Eyes: pink conjunctivae - HEAD, EARS, NOSE, MOUTH & THROAT HENMT: normocephalic/atraumatic, moist mucous membranes - NECK Neck: non-tender, full range of motion, supple, normal inspection - RESPIRATORY Respiratory: chest non-tender, lungs clear, normal breath sounds, no respiratory distress, no accessory muscle use - CARDIOVASCULAR Cardiovascular: normal peripheral pulses, regular rate, rhythm, no gallop, no JVD, no murmur, other (3+ non-pitting edema noted to bilateral lower extremities .) - GASTROINTESTINAL (ABDOMEN) Abdominal Exam: normal bowel sounds, non tender, soft, no organomegaly, no pulsatile mass - MUSCULOSKELETAL Back Exam: normal inspection Extremity: normal range of motion, non-tender, normal gait, normal inspection. negative: deformity, erythema, pulse deficit, slow capillary refill - SKIN Integumentary: normal color, warm/dry. negative: cyanosis, diaphoresis, jaundice, mottled, pallor - NEUROLOGIC Neurologic: grossly normal, no motor/sensory deficits - PSYCHIATRIC Psych/Mental Status: normal mood/affect, normal thought content, normal thought process, oriented x 3 Progress - PLAN OF CARE/RESULTS Progress/Plan/Lab Results: Vital Signs - 8 hr 07/25/18 16:54 Temperature 98.1 F Pulse Rate 73 Respiratory Rate 18 Blood Pressure 201/118 O2 Sat by Pulse Oximetry 97 Orders Category Date Time Status Orthostatic Vital Signs NOW Care 07/25/18 18:11 Active Saline Loc NOW Care 07/25/18 18:10 Active CHEST-2 VIEWS [RAD] Stat Exams 07/25/18 18:12 Ordered CBC WITH ELECTRONIC DIFF [HEME] Stat Lab 07/25/18 16:59 Uncollected CK PROFILE [SP CHEM] Stat Lab 07/25/18 16:59 Uncollected COMPREHENSIVE METABOLIC PANEL [CHEM] Stat Lab 07/25/18 16:59 Uncollected MAGNESIUM [CHEM] Stat Lab 07/25/18 18:10 Ordered PRO B-NATRIURETIC PEPTIDE Stat Lab 07/25/18 16:59 Uncollected PROTIME WITH INR [COAG] Stat Lab 07/25/18 16:59 Uncollected PTT [COAG] Stat Lab 07/25/18 16:59 Uncollected TROPONIN T Stat Lab 07/25/18 16:59 Uncollected UA NIMS W/REFLEX CULT [URINALYSIS] Stat Lab 07/25/18 18:11 Uncollected Hydralazine [Apresoline] Med 07/25/18 18:12 Discontinued 10 mg IV NOW ONE CP/SOB/Palp >45 yrs of Age Stat Oth 07/25/18 16:58 Ordered EKG [EKG] Stat Ther 07/25/18 16:59 Draft Heart Score 4. 2000- Admitting HPS paged. Pt in agreement with admission plan. Result Diagrams: 07/25/18 18:52 07/25/18 18:52 - EKG 1 Time of EKG reading by physician:: 17:06 EKG Read and Signed by:: Maicol Huff EKG Interpretation (*Must complete 3 of following elements*): Abnormal Rate: 81 Rhythm: SR - possible left atrial enlargement QRS: normal ST Wave: normal - XRAY 1 XRAY Study: Chest (IMPRESSION: No evidence of acute disease. Electronically signed by Artur Orantes 07/25/2018 7:18 PM) - CONSULTS/PCP/HOSPITALIST Notification #1 *Consult/PCP/Hospitalist*: Dr. Hurst Time Discussed: 20:35 Reason/Comments: admission-chest pain Consult Disposition: Admit Departure - Departure Date of Disposition Decision: 07/25/18 Time of Disposition Decision: 20:36 DIAGNOSIS: Chest pain Qualifiers: Chest pain type: unspecified Qualified Code(s): R07.9 - Chest pain, unspecified Hypertension Qualifiers: Hypertension type: unspecified Qualified Code(s): I10 - Essential (primary) hypertension Disposition: ADMITTED INPATIENT 09 Certified Medical Emergency: Emergent Condition: Stable Referrals and Follow-Ups: Johana Abebe MD [Primary Care Provider] - - Critical Care Note This patient required my direct & personal management of CC.: No Attestation - Physician/ REMEDIOS Attestation Patient care was provided by Advanced Practice Provider:: Yes Advanced Practice Provider:: Susan Gaspar Advanced Practice Provider documentation review:: The Mid-level provider documentation, treatment plan and medical decision making was reviewed by the physician who agrees with all treatment and medical decision making by the MLP. The physician spent face to face time with patient:: No Advanced Practice Provider documentation review:: Supervising physician onsite and consulted in the evaluation and care of this patient. The physician did not have a face to face encounter with the patient.
[2018-07-25 19:11] LABS: BASO# 0.02 X1000 (0.0-0.2); BASO% 0.2 % (0.0-0.8); EOS# 0.19 X1000 (0.0-0.7); EOS% 1.7 % (0.0-10.0); HEMATOCRIT 43.2 % (37.0-47.0); HEMOGLOBIN 14.3 g/dL (12.0-16.0); IMM GRAN# 0.03 X1000 (0.0-0.04); IMM GRAN% 0.3 % (0.0-0.5); LYMPH# 3.77 X1000 (1.2-3.4); LYMPH% 34.6 % (20.5-51.1); MCH 26.6 PG (27-31); MCHC 33.1 g/dL (33-37); MCV 80.3 FL (81-99); MONO# 0.84 X1000 (0.11-0.59); MONO% 7.7 % (1.7-9.3); MPV 9.4 FL (7.4-10.4); NEUT# 6.06 X1000 (1.4-6.5); NEUT% 55.5 % (42.2-75.2); PLT 341 X1000 (130-400); RBC 5.38 XMIL (4.2-5.4); RDW 17.3 % (11.5-14.5); WBC 10.91 X1000 (4.8-10.8)
--- NOTE | 2018-07-25 19:21 | Diag Imaging Result Doc PS360 ---
EXAM: CHEST-2 VIEWS - 07/25/2018 HISTORY: chest pain TECHNIQUE: Chest two views COMPARISON: 11/06/2017 FINDINGS: Heart size appears normal. There is mild tortuosity of the thoracic aorta. The lungs appear clear. There is no pleural effusion or pneumothorax identified. IMPRESSION: No evidence of acute disease. Electronically signed by Artur Orantes 07/25/2018 7:18 PM
[2018-07-25 19:24] LABS: INR 0.94; PROTIME 13.4 Seconds (11.0-16.0)
[2018-07-25 19:26] LABS: AGAP 13; ALB/GLOB RATIO 1.3; ALBUMIN 4.3 g/dL (3.5-5.0); ALKALINE PHOSPHATASE 72 U/L (32-104); BUN 12 mg/dL (8-22); CHLORIDE 105 mmol/L (98-107); CK PROFILE 153 U/L (24-173); COSMO 285; CREATININE 0.6 mg/dL (0.5-0.9); ESTIMATED GFR > 60; GLUCOSE 96 mg/dL (70-104); GOT 14 U/L (10-30); GPT 15 U/L (10-36); POTASSIUM 3.8 mmol/L (3.5-5.1); SODIUM 143 mmol/L (136-145); TCO2 25 mmol/L (25-35); TOTAL BILIRUBIN 0.15 mg/dL (0.20-1.00); TOTAL PROTEIN 7.6 g/dL (6.3-8.3)
--- NOTE | 2018-07-25 19:26 | Diag Imaging Result Doc PS360 ---
EXAM: CT HEAD W/O CONTRAST - 07/25/2018 HISTORY: dizziness, headache, elevated BP TECHNIQUE: CT head without contrast COMPARISON: 03/12/2016 FINDINGS: There is no evidence of intracranial hemorrhage, mass effect, midline shift, or hydrocephalus. There are mild chronic appearing microvascular ischemic changes. There is no indication of recent infarct, although acute infarcts may not be immediately visible. There is no evidence of skull fracture. Visualized portions of paranasal sinuses and mastoid air cells appear clear. IMPRESSION: Mild chronic microvascular ischemic changes. No visible acute intracranial abnormality. No hemorrhage or mass effect. This exam was performed using automated exposure control, adjustment of mA or kV according to patient size, and/or use of iterative reconstruction technique. Electronically signed by Artur Orantes 07/25/2018 7:23 PM
[2018-07-25 19:28] LABS: PTT 28.5 Seconds (22.3-41.8)
[2018-07-25] MEDS ORDERED: LABETALOL IV ONE ×2 (19:42→22:44)
[2018-07-25] MEDS ORDERED: NITROGLYCERIN TOP ONE (19:57)
[2018-07-25 20:06] LABS: URINE SOURCE CLEAN CATCH
[2018-07-25 20:11] LABS: BILIRUBIN URINE NEGATIVE (NEGATIVE); BLOOD URINE NEGATIVE (NEGATIVE); COLOR YELLOW; GLUCOSE URINE NEGATIVE (NEGATIVE); KETONE URINE NEGATIVE (NEGATIVE); LEUKOCYTES URINE NEGATIVE (NEGATIVE); NITRITE URINE NEGATIVE (NEGATIVE); PROTEIN URINE NEGATIVE (NEGATIVE); SP GRAVITY URINE 1.016; TURBIDITY URINE CLEAR (CLEAR); UROBILINOGEN URINE NORMAL (NORMAL)
[2018-07-25 20:12] LABS: UR EPITHELIAL CELLS <10 /HPF (<10); URINE BACTERIA NEGATIVE /HPF; URINE RBC <10 /HPF (<10); URINE WBC <10 /HPF (<10)
[2018-07-25] MEDS ORDERED: PHENERGAN IV ONE (21:33)
[2018-07-25] MEDS ORDERED: SODIUM CHLORIDE 0.9% INJ ONE (21:33)
[2018-07-25] MEDS ORDERED: DILAUDID IV ONE (21:33)
[2018-07-25] MEDS ORDERED: TYLENOL LIQUID PO ONE (21:34)
--- NOTE | 2018-07-26 00:10 | HISTORY AND PHYSICAL ---
PRIMARY CARE PHYSICIAN: Dr. Johana Abebe. REASON FOR ADMISSION: Chest pain and headache today. HISTORY OF PRESENT ILLNESS: Ms. April Temple is a 48-year-old, woman with past medical history of hypertension, type 2 diabetes, hyperlipidemia, lupus, hypertensive heart disease and heart failure, sleep apnea, who comes in today complaining of sudden headache and retrosternal chest pain on awaking this morning. Says the pain is pressure- like, radiating down her left arm. She says when she stood up she developed some palpitations. She admits to exertional dyspnea when this started. No antecedents or history of extremity redness or pain. She admits to having right lower extremity numbness, which has been ongoing for several months, but no profound weakness. The patient states she has been having to sleep with 3 pillows, because she says she has been short of breath for the last couple days prior to admission. No fever or chills. No cough per se. Headache is in frontal area, dull with photophobia and phonophobia, and she also admits to having bilateral floaters. She admits to having nausea with this. The patient vomited once today. No other additional GI, complaints. No polyuria or polydipsia. No heat intolerance. The patient did seek care at Dr. Weinstein's office, and he prescribed care at [facility] and hydralazine for her, and was to schedule a Holter monitor for her, but then changed his mind and decided that she should go to the ER to be evaluated. REVIEW OF SYSTEMS: Twelve system review was done. Positive findings per HPI. Patient does admit that she was taking Sudafed recently. She also reports that within the last 1 week she blacked out and fell down some stairs. She also reports that her blood pressure usually runs about 170 rate systolic, which is "normal" for her. ALLERGIES: She is allergic to Fioricet, Flexeril, Robaxin, NSAIDs, hydrocodone, Demerol, morphine, oxycodone, tramadol, adhesive tapes, Benadryl, aspirin, Zofran. MEDICATION: The patient's medication list has not been officially reconciled, although from the bottles she had, she was taking Lasix, Coreg, Catapres. She was just prescribed today at her advertising editor's office Diovan and hydralazine. FAMILY HISTORY: Notable for lupus, diabetes type 2, breast cancer, hypertension in first-degree relatives. PAST MEDICAL HISTORY: Noted as above, includes prior DVT's, sick sinus syndrome, status post pacemaker x2, replacement which were both removed because of MRSA infections. SURGICAL HISTORY: She has had cholecystectomy, hysterectomy, , neck and back surgery. SOCIAL HISTORY: Smokes about 1/2 pack per day. Wine every weekend. No illicit drug use. Lives with her daughter. LABORATORY WORK: EKG report was normal sinus rhythm with left atrial enlargement, flipped T waves in aVL, Q-waves in V1. No evidence of ventricular hypertrophy. Voltage criteria. White count 11,000, hemoglobin and hematocrit 14 and 43, platelets 341,000, with MCV of 80. Chemistry: Glucose is 396, magnesium is 1.9. Troponin is negative. CK is normal. D-dimer is normal. PT and PTT is normal. Urinalysis clear. Chest film shows no evidence of acute cardiopulmonary process. Head CT, chronic mild microvascular ischemic changes. PHYSICAL EXAMINATION: VITAL SIGNS: Blood pressure the 215/121, heart rate 84, respirations 18, temperature is 98.2, she is saturating 98% on room air. GENERAL: The patient is an obese, middle-aged, woman who is in mild distress from her headache. She is alert and oriented to person, place, and time with normal mood and affect. HEENT: Head is normocephalic, atraumatic. Eyes, NIKOS, EOMI. Conjunctivae are pale. ENT, oropharynx exam is normal. NECK: Supple. No JVD or carotid bruit. No thyromegaly. CHEST: Clear on auscultation. Good air entry both lung tubbs. She does have areas of hyperpigmentation under both breast with no evidence of satellite lesions. ABDOMEN: Slightly protuberant, soft, nontender. No mass, megaly. Bowel sounds are hypoactive. Rectal deferred at this time. EXTREMITIES: Patient has no gross overt edema. Pulses distally are good volume, regular. No clubbing or peripheral cyanosis. NEUROLOGICAL: No gross focal deficits. SKIN: Intact. No breakdown. No erythema. ASSESSMENT: 1. Chest pain syndrome. Does not appear to be infectious or thromboembolic in origin. We need to rule out ischemic etiology based on her compelling risk factors. Will do serial cardiac enzymes. Echocardiogram will be ordered. Cardiology will be consulted. Aspirin will have been given empirically, but because she is allergic to NSAIDs, this will be held. Consider Plavix if needed. Start patient on statins if deemed necessary. 2. Syncope. Could be related to pre-existing sick sinus syndrome she has had in the past. We will put patient on continuous telemetry monitoring to ensure this. Another potential differential would have been a pulmonary embolism. However, her D-dimer is normal. Patient's prior history of DVT's and PE's, can also be seen with syncopal spells. The patient did had one over the weekend and had no recollection of what preceded it and what happened thereafter. 3. Uncontrolled hypertension. Patient is on beta blockers, alpha-2 agonist, and diuretics. We will continue prescriptions prescribed, i.e. Diovan and hydralazine, and also add amlodipine. I also believe patient definitely has secondary hypertension. Daughter confirms patient does have sleep apnea and this needs to be addressed urgently. May also consider Aldactone in case patient have hyperaldosteronism. 4. Type 2 diabetes. Appears to be well controlled. Check A1c, put on insulin sliding scale. 5. Lupus. Appears to be stable. 6. Sick sinus syndrome. Currently will be placed on telemetry. 7. Headache. Which could be related to her poorly controlled hypertension. Will control blood pressure. If headaches persists, consider treatment for possible migraines. cc: MD Johana Azevedo [facility]
[2018-07-26] MEDS ORDERED: SODIUM CHLORIDE 0.9% INJ ONE (00:21)
[2018-07-26] MEDS ORDERED: PHENERGAN IV PRN (00:21)
[2018-07-26] MEDS: LOVENOX SUBQ SCH ×2 (00:52→23:32)
[2018-07-26] MEDS: LASIX PO SCH ×2 (00:53→08:23)
[2018-07-26] MEDS: NITROGLYCERIN TOP SCH ×4 (04:01→21:33)
--- NOTE | 2018-07-26 07:35 | EKG Report ---
Test Performed on : 07/25/2018 11:48:14 PM Test Reason : CP Blood Pressure : / mmHG Vent. Rate : 076 BPM Atrial Rate : 076 BPM P-R Int : 178 ms QRS Dur : 086 ms QT Int : 452 ms P-R-T Axes : 052 015 060 degrees QTc Int : 508 ms Normal sinus rhythm. Prolonged QT Abnormal ECG When compared with ECG of 25-JUL-2018 17:03, (Unconfirmed) No significant change was found Unconfirmed Result
[2018-07-26 08:05] LABS: HEMATOCRIT 44.5 % (37.0-47.0); HEMOGLOBIN 14.6 g/dL (12.0-16.0); MCH 26.2 PG (27-31); MCV 79.9 FL (81-99); RBC 5.57 XMIL (4.2-5.4); WBC 8.94 X1000 (4.8-10.8)
[2018-07-26 08:06] LABS: BASO# 0.02 X1000 (0.0-0.2); BASO% 0.2 % (0.0-0.8); EOS# 0.13 X1000 (0.0-0.7); EOS% 1.5 % (0.0-10.0); IMM GRAN# 0.02 X1000 (0.0-0.04); IMM GRAN% 0.2 % (0.0-0.5); LYMPH# 3.21 X1000 (1.2-3.4); LYMPH% 35.9 % (20.5-51.1); MCHC 32.8 g/dL (33-37); MONO# 0.81 X1000 (0.11-0.59); MONO% 9.1 % (1.7-9.3); MPV 9.3 FL (7.4-10.4); NEUT# 4.75 X1000 (1.4-6.5); NEUT% 53.1 % (42.2-75.2); PLT 349 X1000 (130-400); RDW 17.4 % (11.5-14.5)
[2018-07-26 08:20] LABS: AGAP 11; ALB/GLOB RATIO 1.1; ALBUMIN 4.3 g/dL (3.5-5.0); ALKALINE PHOSPHATASE 72 U/L (32-104); BUN 11 mg/dL (8-22); CALCIUM 9.1 mg/dL (8.8-10.2); CHLORIDE 103 mmol/L (98-107); CHOLESTEROL 209 mg/dL (0-200); COSMO 283; CREATININE 0.7 mg/dL (0.5-0.9); ESTIMATED GFR > 60; GLUCOSE 104 mg/dL (70-104); GOT 14 U/L (10-30); GPT 15 U/L (10-36); HDL 45 mg/dL (45-65); LDL 138 mg/dL; POTASSIUM 3.8 mmol/L (3.5-5.1); SODIUM 142 mmol/L (136-145); TCO2 28 mmol/L (25-35); TOTAL BILIRUBIN 0.31 mg/dL (0.20-1.00); TOTAL PROTEIN 8.1 g/dL (6.3-8.3); TRIGLYCERIDES 131 mg/dL (35-135); VLDL 26 mg/dL
[2018-07-26] MEDS: HUMALOG SUBQ SCH ×4 (08:22→21:33)
[2018-07-26] MEDS: DIOVAN PO SCH (08:23)
[2018-07-26] MEDS: APRESOLINE PO SCH ×2 (08:23→21:35)
[2018-07-26] MEDS: NORVASC PO SCH (08:23)
[2018-07-26 09:42] LABS: IRON SATURATION 9 %; TIBC 444 ug/dL; TOTAL IRON 41 ug/dL (49-151); UNBOUND IRON 403 ug/dL (112-346)
[2018-07-26 10:29] LABS: FERRITIN 18 ng/mL (13-150)
[2018-07-26] MEDS ORDERED: COREG PO SCH (10:30)
[2018-07-26] MEDS ORDERED: VENOFER 200 MG in NS 100 ML IV ONE (11:33)
[2018-07-26] MEDS: COREG PO SCH ×2 (12:15→21:34)
[2018-07-26] MEDS: HYDROCHLOROTHIAZIDE PO SCH (12:16)
--- NOTE | 2018-07-26 12:27 | PROGRESS NOTE ---
DATE: 07/26/2018 SUBJECTIVE: This morning, Mr. Temple refers to be doing fairly okay. She has this dry cough which according to her has been going on for a very long time. OBJECTIVE: Vital signs: Blood pressure is 143/91, pulse 69, respirations 18, temperature 98.1 degrees. General: Is a 48-year-old female. She is in bed, no distress. HEENT: Mucosa is pink and moist. Anicteric. Acyanotic. Neck: Supple. Respiratory: There is good air entry bilaterally. No crepitations. No rhonchi. Cardiovascular: Regular rate and rhythm. There is no murmurs, no rubs, no gallops. Gastrointestinal: Abdomen is soft, nontender. Bowel sounds present. There is an old infraumbilical surgical scar. Extremities: No pedal edema. Distal pulses are present. Central nervous system: Patient is awake, alert, oriented. There is no focal neurological deficit. Musculoskeletal: There is an old surgical scar over the lumbar and lumbosacral region. LABORATORY DATA: WBC is 8.94, hemoglobin is 14.6, platelet count of 349,000. Chemistry is reviewed, is completely normal. There is evidence of iron deficiency. Troponins have all been negative and proBNP was also negative ASSESSMENT: 1. Chest pain on presentation, likely associated with uncontrolled hypertension (hypertensive- induced precordialgia). This has significantly improved since the blood pressure has been controlled. 2. Uncontrolled hypertension. Patient is on medication. Blood pressure is a lot better now. The patient has had multiple other admissions related with uncontrolled blood pressure. Blood pressures get controlled in the hospital. There is a question of compliance. 3. Diabetes mellitus, controlled. 4. History of cardiac arrhythmia. The patient was evaluated by Cardiology yesterday and there is a plan for her to wear a Holter monitor. 5. History of lupus. According to Ms. Temple, this diagnosis was made a couple years ago. From looking from her lab work here, the double strand has been positive in the past, but CHRISTOPH and all other investigations have actually been negative. I think it is reasonable to repeat this. She has not had any treatment for lupus, so I am not really sure if that is the true clinical lupus or was just a positive antibody. 6. Microcytosis secondary to iron deficiency. The patient will be given an infusion of Venofer. 7. Severe left ventricular hypertrophy secondary to hypertensive heart disease. 8. Chronic cough in a smoker. I think there could be an underlying chronic obstructive pulmonary disease. A chest x-ray this morning was unremarkable. We will do a CT scan of the chest to have a better anatomy of the lungs, mainly because of possible chronic obstructive pulmonary disease. However, a lung manifestation of a possible lupus is also a possibility and want to rule it out. PLAN: In general I think Ms. Temple is doing a lot better. There have been some changes to her blood pressure medications. Blood pressure is now better controlled. Cardiology prefers to observe her overnight and hopefully get her discharged tomorrow. cc: Sukhdeep Yang MD
--- NOTE | 2018-07-26 13:55 | ECHO REPORT ---
ORDER DATE: 07/26/2018 INDICATION: Chest pain. FINDINGS: 1. The right atrium appears normal in size at 2.4 cm. 2. Mild tricuspid regurgitation. There is an RV systolic pressure of 30 mmHg. There is a mobile mass adherent to what appears to be the atrial side of possibly the tricuspid valve. It is difficult to adequately visualize but in some images, it appears to be more involved with the septal leaflet. It does appear to be echodense and possibly calcified. Would consider transesophageal echo to further evaluate. 3. Normal RV size and systolic function. 4. No significant pulmonic insufficiency. 5. Normal left atrial size at 3.2 cm. 6. No mitral valve prolapse. Trace mitral regurgitation. 7. Normal LV size, end-diastolic dimension of 4.1. Moderate to severe left ventricular hypertrophy. The posterior and septal wall thicknesses are 1.4 and 1.7 cm respectively. Normal to hyperdynamic LV systolic function. The estimated EF is 65 to 70 percent. 8. Aortic valve opens well. It is trileaflet. No evidence of stenosis or insufficiency. 9. Aorta appears normal visualized segments. 10. No pericardial effusion seen. cc: MD Papi Nelson MD
--- NOTE | 2018-07-26 15:00 | CONSULTATION ---
DATE OF CONSULTATION: 07/26/2018 IMPRESSION: 1. Hypertension with significantly elevated blood pressure on presentation. 2. Chest discomfort on presentation. No objective evidence of acute myocardial ischemia. Coronary angiography last year negative for any significant coronary disease. Suspect chest discomfort likely non coronary in nature, and possibly related to elevated blood pressure. 3. Hypertensive cardiovascular disease. 4. History of previous bradycardia issues in the past. Patient is status post previous permanent pacemaker implant which was removed, and a new pacemaker placed after infection. Ultimately, the second pacemaker was removed because of recurrent infectious problem. 5. Recent syncopal episode a week ago. Ambulatory ECG monitor planned per primary corporate tax manager, Dr. Weinstein. RECOMMENDATIONS: 1. Agree with addition of amlodipine for patient's blood pressure. 2. Would empirically reduced beta-albino dose. 3. Switch amiloride to hydrochlorothiazide. 4. Continue to use hydrochlorothiazide and Diovan. However, it may be preferable to wean off hydralazine and Diovan. However, it may be preferable to wean off hydralazine given the concerns regarding her medical compliance. 5. Monitor another 24 hours after adjustments in antihypertensive regimen. It is reasonable for her to go home tomorrow in the morning if no further difficulties. She should have outpatient ambulatory ECG monitor as planned. HISTORY: This 48-year-old female with past history of hypertensive cardiovascular disease, previous permanent pacemaker implant for bradyarrhythmias in the past which ultimately were removed, and obesity was admitted to the emergency room after she presented with chest discomfort and significant elevated blood pressure. She has a long history of hypertension. She had bradyarrhythmias more than a decade ago, and had permanent pacemaker implant. This developed infection, and had to be removed. She had a second pacemaker placed, and this ultimately also had to be removed due to infectious problems. She has continued without a pacemaker for several years now. She has had a tendency for severe hypertension. She had a syncopal spell a week ago. She was seen in our office with her regular corporate tax manager, Dr. Weinstein. Blood pressure was elevated and adjustments were made in her antihypertensive regimen. Plan was for outpatient ambulatory ECG monitor. She developed some chest pressure as well as some headache, and came to the emergency room. Blood pressure was significantly elevated. She was subsequently admitted for further management. Adjustments in her antihypertensive regimen have been made with addition of amlodipine. It is noteworthy that she had coronary angiography less than a year ago which demonstrated normal coronary arteries. Left ventricular ejection fraction has been normal. Left ventricular end-diastolic pressure was also normal. PAST MEDICAL HISTORY: 1. Hypertensive cardiovascular disease. 2. Obesity. 3. Previous pacemaker for bradyarrhythmias which ultimately was removed due to infection problems. Second pacemaker also removed due to infection problems. 4. History of DVT. 5. Gastroesophageal reflux disease. 6. Depression. 7. Obstructive sleep apnea. PAST SURGICAL HISTORY: Also includes cholecystectomy, hysterectomy, previous , and unspecified neck and back surgery. She is also status post appendectomy. ALLERGIES: She has multiple drug allergies including Fioricet, Flexeril, Robaxin, nonsteroidal anti-inflammatory medications, hydrocodone, Demerol, morphine, oxycodone, tramadol, adhesive tape, Benadryl, aspirin and Zofran. MEDICATIONS PRIOR TO ADMISSION: As listed. SOCIAL HISTORY: She smokes a half-pack of cigarettes per day. She drinks an occasional glass of wine. She lives with her daughter. FAMILY HISTORY: Negative for premature coronary disease. Positive for diabetes mellitus type 2, breast cancer and hypertension. REVIEW OF SYSTEMS: Pulmonary: Negative. Gastrointestinal: Noncontributory beyond history of present illness. Constitutional: Negative. Remainder of the review of systems negative/noncontributory beyond history of present illness with 14 total systems reviewed. PHYSICAL EXAMINATION: General: This is an obese female in no distress. Vital signs: Blood pressure 143/91, heart rate 69 and regular, and weight 234 pounds. HEENT: Extraocular movements appear intact. Mucous membranes moist. Neck: Supple. No jugular venous distention. No carotid bruits. Chest: Clear to auscultation. Cardiac: Reveals a regular rate and rhythm without appreciable murmur or gallop. Abdomen: Soft. Bowel sounds are normal. Extremities: Without edema. Neurologic: Reveals her to be alert and fully oriented. Speech is fluent. Moves all 4 extremities equally well. LABORATORY DATA: Sodium 142, potassium 3.8, chloride 103, carbon dioxide 28, BUN 11, creatinine 0.7, glucose 104, magnesium 2.0. CPK 136. Followup CPK 153. Troponin T less than 0.01. Pro B- natriuretic peptide level 30. D-dimer 0.49. 12 lead EKG demonstrates sinus rhythm. Borderline prolonged QT interval. cc: Ronnie Farrell MD [facility]
[2018-07-27] MEDS: NITROGLYCERIN TOP SCH ×2 (02:07→08:43)
[2018-07-27] MEDS: HUMALOG SUBQ SCH (06:00)
[2018-07-27 07:18] VITALS: BP 131/105
[2018-07-27] MEDS: APRESOLINE PO SCH (08:42)
[2018-07-27] MEDS: NORVASC PO SCH (08:42)
[2018-07-27] MEDS: COREG PO SCH (08:42)
[2018-07-27] MEDS: DIOVAN PO SCH (08:42)
[2018-07-27] MEDS: HYDROCHLOROTHIAZIDE PO SCH (08:43)
--- NOTE | 2018-07-27 09:12 | Diag Imaging Result Doc PS360 ---
EXAM: CT THORAX W/O CONTRAST 07/27/2018 HISTORY: chronic cough. hx SLE TECHNIQUE: This exam was performed using automated exposure control, adjustment of mA or kV according to patient size, and/or use of iterative reconstruction technique. COMMENT: There is a linear scar in the lingula which has not changed since 03/17/2015. There is no evidence of acute pulmonary disease. There is a tiny nodule adjacent to the pleura in the left apex on image 20 which was apparently also present previously. There are small prevascular, paratracheal, and aorticopulmonary window nodes similar in appearance to the previous study. Some residual thymic tissue is present. There are no abnormal fluid collections. There has been previous cholecystectomy and there are surgical clips anterior to the inferior vena cava. The adrenal glands are not enlarged. There is an abnormal lucency in the left hepatic lobe which was also present at the time the previous study and most likely represents a large hemangioma. This is at least 3.9 cm in diameter. It appeared even larger previously. The regional skeleton is stable in appearance. IMPRESSION: No evidence of acute disease. Electronically signed by Abdulaziz Lewis 07/27/2018 9:10 AM
--- NOTE | 2018-07-27 10:58 | DISCHARGE SUMMARY ---
ADMISSION DATE: 07/25/2018 DISCHARGE DATE: 07/27/2018 DISPOSITION: Home. FOLLOW-UP: 1. Dr. Johana Abebe 2. Dr. Harp. 3. Dr. Weinstein. CONSULTATIONS DURING ADMISSION: Cardiology was consulted. Patient was seen by Dr. Farrell. INVASIVE PROCEDURES DONE DURING ADMISSION: None. IMAGING STUDIES OF SIGNIFICANCE: 1. A chest x-ray was done which was unremarkable. 2. A CT scan of the head without contrast showed mild chronic microvascular ischemic changes. 3. Echocardiogram showed an ejection fraction of 65 to 70 percent with moderate to severe left ventricular hypertrophy. 4. A CT scan of the chest was unremarkable. ADMISSION DIAGNOSES: 1. Chest pain syndrome. 2. Syncope. 3. Uncontrolled hypertension. 4. Type 2 diabetes mellitus. 5. Lupus. DIAGNOSES AT TIME OF DISCHARGE: 1. Hypertensive induced precordialgia. 2. Severe uncontrolled hypertension on presentation. 3. Diabetes mellitus. 4. History of cardiac arrhythmias. The patient is going to be monitored with Holter monitor. 5. History of lupus. 6. Microcytosis secondary to iron deficiency. 7. Severe left ventricular hypertrophy secondary to hypertensive heart disease. 8. Chronic cough in a smoker. CT scan of the chest was unremarkable. Patient is advised to follow up with Pulmonary Medicine. DISCHARGE MEDICATIONS: 1. Amlodipine 10 mg p.o. daily. 2. Carvedilol 25 mg b.i.d. 3. Valsartan 160 p.o. daily. 4. Hydrochlorothiazide 25 mg p.o. daily. 5. Omeprazole 20 mg p.o. daily. 6. Iron ferrous gluconate 324 p.o. b.i.d. 7. Hydralazine 50 mg b.i.d. 8. Ashley-Colace 1 tablet b.i.d. PRESENTING COMPLAINT: Chest pain and headaches. HISTORY OF PRESENTING COMPLAINT: Ms. Temple is a 48-year-old female with multiple comorbidities including dyslipidemia, diabetes, and hypertension, who came to the emergency department because of pressure-like chest pain. Upon presentation, patient was evaluated. Initial vitals revealed a blood pressure of 201/118. It went up to 204/124 at some point even though the diastolic that read 152 at some point. Ms Temple was treated in the emergency room, and was admitted for further medical care. HOSPITAL COURSE: Ms. Temple was admitted to the medical floor on telemetry monitoring, and was started on some p.o. antihypertensive medications which were titrated throughout the hospital course. Cardiology was consulted. Ms. Temple was seen by Dr. Farrell who also made changes to his current medications. She seems to have tolerated it, and blood pressure got better. Ms. Temple during the hospital course was also found to have cough. According to her, this is chronic. Being a smoker, we think she has changes of chronic obstructive pulmonary disease. However, a CT scan was unremarkable. She also has lupus so we thought it could be associated with long manifestations of lupus. As I said, a CT scan was unremarkable. The patient is advised on smoking cessation. She is recommended to follow up with Pulmonary Medicine for PFTs and other pulmonary evaluation. Ms. Temple was found to be remarkably iron deficient with a ferritin of 18 and saturation of 9%. She was given a one time infusion of Venofer and was started on p.o. iron supplement. She has been advised to follow up with her primary care doctor. This morning Ms. Temple refers to be doing a lot better. She is completely asymptomatic. No more chest pain, and her cough is getting better. She has been tolerating her diet. We think she is in stable condition to be discharged. All the discharge instructions including smoking cessation have all been discussed at length with her, and she voiced understanding. Ms. Temple is known to have cardiac arrhythmia and questionable sick sinus syndrome. She has been given a Holter monitor device by Cardiology for close monitoring. She will follow up with Dr. Weinstein on an outpatient basis. TIME SPENT FOR DISCHARGE: 36 minutes. cc: MD Dr. Johana Elaine Dr., Dr.
== END 2018-07-27 11:11 | disposition home or self-care (01) | DRG 293 ==
LOC: ED 16:41 → 3N 07-26 01:01 → SUATTDRO 07-26 01:01
PROVIDERS: ATTEND Internal Medicine
CPT/HCPCS: 70450; 71020; 71046; 71250; 80053; 80061; 81001; 82550; 82607; 82728; 82746; 82948; 83036; 83540; 83550; 83735; 83880; 84443; 84484; 85025; 85379; 85610; 85730; 86038; 86039; 93005; 93306; 96372; 96374; 96375; 99285; A9270; J0360; J1170; J1650; J1756; J2550; XXXXX

== ENCOUNTER 2018-11-28 06:00 | Inpatient (IN) ==
--- NOTE | 2018-11-27 13:33 | EKG Report ---
Test Performed on : 11/27/2018 12:49:58 PM Test Reason : PAT Blood Pressure : / mmHG Vent. Rate : 078 BPM Atrial Rate : 078 BPM P-R Int : 180 ms QRS Dur : 102 ms QT Int : 412 ms P-R-T Axes : 057 024 110 degrees QTc Int : 469 ms Normal sinus rhythm. T wave abnormality, consider lateral ischemia Prolonged QT Abnormal ECG When compared with ECG of 03-SEP-2018 16:55, T wave inversion now evident in Lateral leads Confirmed by Kelsie CRUZ, Hector Collier ([id number]) on 11/28/2018 10:13:49 PM
[2018-11-27 13:52] LABS: URINE SOURCE CLEAN CATCH
[2018-11-27 13:58] LABS: BASO# 0.01 X1000 (0.0-0.2); BASO% 0.1 % (0.0-0.8); EOS# 0.15 X1000 (0.0-0.7); HEMOGLOBIN 14.7 g/dL (12.0-16.0); LYMPH# 2.87 X1000 (1.2-3.4); LYMPH% 37.4 % (20.5-51.1); MCH 26.9 PG (27-31); MCHC 32.7 g/dL (33-37); MCV 82.3 FL (81-99); MONO# 0.54 X1000 (0.11-0.59); MPV 9.1 FL (7.4-10.4); NEUT% 53.5 % (42.2-75.2); PLT 371 X1000 (130-400); RBC 5.47 XMIL (4.2-5.4); RDW 16.5 % (11.5-14.5); WBC 7.67 X1000 (4.8-10.8)
[2018-11-27 14:04] LABS: INR 0.99; PROTIME 13.2 Seconds (11.0-16.0)
[2018-11-27 14:05] LABS: PTT 28.3 Seconds (22.3-41.8)
[2018-11-27 14:12] LABS: AGAP 13; BUN 12 mg/dL (8-22); CALCIUM 8.9 mg/dL (8.8-10.2); CHLORIDE 99 mmol/L (98-107); COSMO 277; CREATININE 0.6 mg/dL (0.5-0.9); ESTIMATED GFR > 60; GLUCOSE 94 mg/dL (70-104); POTASSIUM 3.8 mmol/L (3.5-5.1); SODIUM 139 mmol/L (136-145); TCO2 27 mmol/L (25-35)
[2018-11-27 14:13] LABS: BILIRUBIN URINE NEGATIVE (NEGATIVE); BLOOD URINE NEGATIVE (NEGATIVE); COLOR YELLOW; GLUCOSE URINE NEGATIVE (NEGATIVE); KETONE URINE NEGATIVE (NEGATIVE); LEUKOCYTES URINE NEGATIVE (NEGATIVE); NITRITE URINE NEGATIVE (NEGATIVE); PH URINE 6.5; PROTEIN URINE NEGATIVE (NEGATIVE); SP GRAVITY URINE 1.023; TURBIDITY URINE CLEAR (CLEAR); UROBILINOGEN URINE NORMAL (NORMAL)
[2018-11-27 14:16] LABS: UR EPITHELIAL CELLS <10 /HPF (<10); URINE BACTERIA 1+ /HPF; URINE WBC <10 /HPF (<10)
[2018-11-27 14:23] LABS: URINE YEAST NONE SEEN
[2018-11-27 14:48] LABS: HEMOGLOBIN A1C 6.3 % (4.8-6.0)
[2018-11-28] MEDS ORDERED: KEFZOL 1 GM/D5W 2 GM/100 ML IVPB ONE (06:49)
[2018-11-28] MEDS ORDERED: PEPCID ONE (06:49)
[2018-11-28] MEDS ORDERED: LYRICA ONE (06:49)
[2018-11-28] MEDS ORDERED: COLACE ONE (06:49)
[2018-11-28] MEDS ORDERED: REGLAN ONE (06:49)
[2018-11-28] MEDS ORDERED: LR 500 ML ONE (06:49)
[2018-11-28] MEDS ORDERED: SODIUM CHLORIDE 0.9% ONE ×2 (08:22→08:48)
[2018-11-28] MEDS ORDERED: SENSORCAINE 0.25%/EPI 1:200,000 ONE (08:22)
[2018-11-28] MEDS ORDERED: CYKLOKAPRON 1,000 MG/NS 2,000 MG/200 ML IVPB ONE (08:22)
[2018-11-28] MEDS ORDERED: TORADOL ONE (08:22)
[2018-11-28] MEDS ORDERED: DURAMORPH ONE (08:22)
[2018-11-28] MEDS ORDERED: VANCOMYCIN ONE ×2 (08:22→08:58)
[2018-11-28] MEDS ORDERED: EXPAREL 1.3% ONE ×2 (08:23→08:49)
[2018-11-28] MEDS ORDERED: DIPRIVAN 1% 0 MG/0 ML BOTTLE ONE (08:26)
[2018-11-28] MEDS ORDERED: DIPRIVAN 1% ONE (08:42)
[2018-11-28] MEDS ORDERED: FENTANYL ONE (08:43)
[2018-11-28] MEDS ORDERED: OFIRMEV 1000 MG/ISOTONIC SOLN 1,000 MG/100 ML BOTTLE ONE (09:44)
[2018-11-28] MEDS ORDERED: DECADRON ONE (09:44)
[2018-11-28] MEDS ORDERED: EPHEDRINE ONE (10:48)
[2018-11-28] MEDS ORDERED: QUELICIN (DOSE) ONE (10:48)
[2018-11-28] MEDS ORDERED: ROBINUL ONE (10:49)
[2018-11-28] MEDS: DILAUDID ONE ×4 (11:48→11:57)
[2018-11-28] MEDS ORDERED: NS 1,000 ML ONE (11:49)
--- NOTE | 2018-11-28 11:56 | Diag Imaging Result Doc PS360 ---
EXAM: KNEE 1-2 VIEWS-RIGHT HISTORY: r tka TECHNIQUE: Right knee, two views COMPARISON: 03/19/2013 FINDINGS: Recent orthopedic replacement of the right knee. There are anterior skin marcus and a superior surgical drain. No fracture. No dislocation. IMPRESSION: Good alignment to the femoral and tibial components following recent orthopedic replacement of the knee. Electronically signed by Johnson Vidal 11/28/2018 11:54 AM
[2018-11-28] MEDS ORDERED: VENTOLIN HFA INH PRN (13:15)
[2018-11-28 14:10] LABS: URINE SOURCE CATH
[2018-11-28] MEDS: DILAUDID IV PRN ×5 (14:13→22:33)
[2018-11-28 14:14] LABS: BILIRUBIN URINE NEGATIVE (NEGATIVE); BLOOD URINE NEGATIVE (NEGATIVE); COLOR YELLOW; GLUCOSE URINE NEGATIVE (NEGATIVE); KETONE URINE NEGATIVE (NEGATIVE); LEUKOCYTES URINE NEGATIVE (NEGATIVE); NITRITE URINE NEGATIVE (NEGATIVE); PROTEIN URINE NEGATIVE (NEGATIVE); SP GRAVITY URINE 1.018; TURBIDITY URINE CLEAR (CLEAR); UROBILINOGEN URINE NORMAL (NORMAL)
[2018-11-28] MEDS: NS 1,000 ML IV SCH (14:14)
[2018-11-28 14:15] LABS: URINE RBC <10 /HPF (<10); URINE WBC <10 /HPF (<10)
[2018-11-28 14:16] LABS: UR EPITHELIAL CELLS <10 /HPF (<10); URINE BACTERIA NEGATIVE /HPF
[2018-11-28] MEDS: KEFZOL 2 GM/D5W 2 GM/50 ML IVPB IV SCH (16:13)
[2018-11-28] MEDS: CATAPRES PO SCH (20:29)
[2018-11-28] MEDS: COREG PO SCH (20:29)
[2018-11-28] MEDS: COLACE PO SCH (20:29)
[2018-11-28] MEDS: LASIX PO SCH (20:29)
--- NOTE | 2018-11-28 21:10 | OPERATIVE NOTE ---
PROCEDURE DATE: 11/28/2018 PREOPERATIVE DIAGNOSIS: Degenerative arthritis of the right knee. POSTOPERATIVE DIAGNOSIS: Degenerative arthritis of the right knee. PROCEDURE: Right total knee arthroplasty with DePuy Attune size 6 narrow posterior stabilized femur, a size 6 tibial tray, a 5 mm rotating platform tibial insert, and a 35 mm medialized anatomic patella. SURGEON: Luis Galvan MD [employer] SALES REPRESENTATIVE: NIC Alegria, who was necessary for proper retraction and manipulation of the extremity during the case. SECOND ASSISTANTS: NIC Paiz and Hernando Contreras RN. ANESTHESIA: General. INTRAVENOUS FLUIDS: 1100 mL lactated Ringer's. ESTIMATED BLOOD LOSS: 25 mL. TOURNIQUET TIME: 90 minutes at 350 mmHg. COMPLICATIONS: None. INDICATION: The patient is a pleasant 48-year-old female, who has had significant pain and discomfort in her right knee as well as swelling. X-rays as well as an MRI were obtained and revealed evidence of significant arthritis reaction of the lateral tibial plateau and degenerative arthritis most significantly along the lateral compartment. Given patient's findings, recommendation to proceed with right total knee arthroplasty was offered. The risks and benefits of surgery were explained, including the risks of anesthesia, , bleeding, infection, failure to relieve pain, postoperative stiffness, nerve injury, blood clots, and other imponderables. All questions were answered. The patient and family wished to proceed with surgery. DETAILS OF THE OPERATION: The patient was taken to the operating room and placed supine on the operating table. Once adequate anesthesia was obtained, patient's right lower extremity was subsequently prepped and draped in the usual sterile fashion. Esmarch was used to exsanguinate the right lower extremity and the tourniquet was inflated to 350 mmHg. A standard anterior incision was made with a skin knife. Medial and lateral skin envelopes were developed. A standard medial parapatellar arthrotomy was then performed. Patellar fat pad was excised. Retractors were then placed. Approximately 1 cm anterior to the to the PCL insertion, a starting reamer was passed. Intramedullary guide with a distal femoral cutting block was pinned in position. Distal femoral cut was then performed in standard fashion. A sizing block was placed and measured a size 6. Corresponding pins were placed. A size 6 cutting block was placed in position. Anterior, posterior, and chamfer cuts were then made. Attention was then turned to the proximal tibia, where using the extramedullary guide, the proximal tibia cutting block was pinned in position. Proximal tibia was then resected. Medial and lateral menisci were excised. Further resection of the ACL and PCL was performed. A curved osteotome was used to remove posterior osteophytes off the distal femur. A spacer block was placed and a good soft tissue balance in both flexion and extension. Attention was turned back to the proximal tibia, where a size 6 tibial tray appeared to be the correct size. This was pinned in position. This followed by a central reamer and a fin punch. A box cutting guide was then placed on the distal femur and a box cut was performed. A trial femoral component was then placed and 2 lug holes were drilled. After this had been performed, a trial tibial insert was placed and had good soft tissue balancing. Patella was everted and resected in standard fashion. The size 35 appeared to be the correct size. Corresponding holes were drilled. A trial patellar component was then placed and had good patellofemoral tracking. The trial components were then removed. Copious irrigation then performed with antibiotic pulsatile lavage while vancomycin was mixed with cement on the back table. Sequential cementing was then performed, first with the tibial tray and excess cement with a Sharon, followed by the femoral component and excess cement was removed with a Sharon, followed by a trial tibial insert in full extension. Axial loading was maintained while the cement cured. Patella was then cemented in standard fashion. Patella clamp was placed. While cement was curing, Exparel was placed in the deep soft tissue, as well as the subcutaneous tissue. After this had been performed and after the cement had cured, peripheral cement was removed with a small osteotome. The 5 mm rotating platform tibial insert appeared to be the correct size. The trial insert was removed. Exparel was then placed in the posterior capsule. The wound was copiously irrigated with antibiotic pulsatile lavage. A 5 mm rotating platform tibial insert was then placed. The knee was carried through range of motion and had good range of motion, good soft tissue balance, and good patellofemoral tracking. A 1/8-inch Hemovac drain was placed and was not sewn in. Copious irrigation was then performed once again with antibiotic pulsatile lavage. Number 1 Vicryl was used to repair the arthrotomy, followed by 2-0 Vicryl to repair the subcutaneous tissue and skin marcus. Adaptic, sterile 4 x 4's, ABD pad, cryo unit, and an Wil wrap were applied to the left lower extremity. Patient tolerated the procedure well with no complications and transferred to the recovery room in stable condition. cc: Luis Galvan MD
[2018-11-28] MEDS: BENADRYL PO PRN (21:27)
[2018-11-28] MEDS: NORCO-10 PO PRN (21:27)
[2018-11-29] MEDS: DILAUDID IV PRN ×10 (01:06→23:40)
[2018-11-29] MEDS: KEFZOL 2 GM/D5W 2 GM/50 ML IVPB IV SCH (01:06)
[2018-11-29] MEDS: NS 1,000 ML IV SCH ×2 (01:07→07:59)
[2018-11-29] MEDS: BENADRYL PO PRN (01:57)
[2018-11-29] MEDS: NORCO-10 PO PRN ×3 (01:57→21:18)
[2018-11-29] MEDS: APRESOLINE PO SCH ×4 (02:07→20:51)
[2018-11-29] MEDS: XARELTO PO SCH (06:12)
[2018-11-29] MEDS: SYMBICORT 160/4.5 MICROGM INHALER INH SCH (06:43)
[2018-11-29 06:55] LABS: HEMATOCRIT 42.1 % (37.0-47.0); HEMOGLOBIN 13.5 g/dL (12.0-16.0)
[2018-11-29] MEDS ORDERED: PRILOSEC PO SCH (07:00)
[2018-11-29 07:09] LABS: AGAP 11; BUN 10 mg/dL (8-22); CHLORIDE 99 mmol/L (98-107); COSMO 275; CREATININE 0.7 mg/dL (0.5-0.9); ESTIMATED GFR > 60; GLUCOSE 128 mg/dL (70-104); POTASSIUM 3.8 mmol/L (3.5-5.1); SODIUM 137 mmol/L (136-145); TCO2 27 mmol/L (25-35)
[2018-11-29] MEDS: NORVASC PO SCH (08:35)
[2018-11-29] MEDS: HYDROCHLOROTHIAZIDE PO SCH (08:35)
[2018-11-29] MEDS: DIOVAN PO SCH (08:35)
[2018-11-29] MEDS: COLACE PO SCH ×3 (08:35→20:52)
[2018-11-29] MEDS: LASIX PO SCH ×3 (08:35→20:52)
[2018-11-29] MEDS: PERIDEX MT SCH ×3 (08:35→20:52)
[2018-11-29] MEDS: CATAPRES PO SCH ×3 (08:35→20:51)
[2018-11-29] MEDS: GLUCOPHAGE PO SCH (08:35)
[2018-11-29] MEDS: COREG PO SCH ×3 (08:35→20:51)
--- NOTE | 2018-11-29 10:54 | ORTHOPAEDICS PROGRESS NOTE ---
DATE: 11/29/2018 SUBJECTIVE: The patient is a pleasant, 48-year-old female who is 1 day status post right total knee arthroplasty. Patient is currently resting comfortably. Did have some discomfort through the night. PHYSICAL EXAMINATION: The patient's right lower extremity dressing is intact. Her calf is soft. She has some paresthesia along the dorsal aspect of the foot and has no active dorsiflexion. She has good capillary refill distally. She is neurovascularly intact on the plantar aspect. LABORATORY DATA: Her labs are pending. IMPRESSION: 1. Postoperative day #1 status post right total knee arthroplasty. 2. Peroneal neurapraxia. PLAN: At this point, we will change her dressing and we will check her labs. We will begin mobilization with physical therapy. We will see how she responds with therapy. The patient may require an AFO brace. We will see how she responds to physical therapy. Will consult adoption social worker for discharge planning. cc: Luis Galvan MD MTDD
[2018-11-30] MEDS: NORCO-10 PO PRN ×4 (01:06→19:29)
[2018-11-30] MEDS: DILAUDID IV PRN ×6 (01:58→15:15)
[2018-11-30] MEDS: XARELTO PO SCH (05:30)
--- NOTE | 2018-11-30 07:01 | ORTHOPAEDICS PROGRESS NOTE ---
DATE: 11/30/2018 SUBJECTIVE: The patient is a pleasant 48-year-old female who is 2 days status post right total knee arthroplasty. She is currently resting comfortably this morning. PHYSICAL EXAMINATION: The patient's right lower extremity has diffuse edema and swelling. Wound looks good. There are no signs or symptoms of infection. Her calf is soft. She continues with no active dorsiflexion. Good capillary refill distally. Labs are pending this morning. IMPRESSION: 1. The patient is postoperative day #2 status post total knee arthroplasty. 2. Right peroneal neurapraxia. PLAN: At this point, we will continue progressing with physical therapy. We will monitor response today. She was slow to mobilize yesterday. Geoscience Specialist has been consulted for discharge planning. cc: Luis Galvan MD [facility]TD[facility]
[2018-11-30 07:22] LABS: HEMATOCRIT 40.9 % (37.0-47.0); HEMOGLOBIN 13.3 g/dL (12.0-16.0)
[2018-11-30] MEDS: SYMBICORT 160/4.5 MICROGM INHALER INH SCH (07:39)
[2018-11-30] MEDS: CATAPRES PO SCH ×2 (08:29→20:57)
[2018-11-30] MEDS: GLUCOPHAGE PO SCH (08:29)
[2018-11-30] MEDS: DIOVAN PO SCH (08:29)
[2018-11-30] MEDS: NORVASC PO SCH (08:29)
[2018-11-30] MEDS: PERIDEX MT SCH ×2 (08:29→20:57)
[2018-11-30] MEDS: APRESOLINE PO SCH ×2 (08:29→20:57)
[2018-11-30] MEDS: HYDROCHLOROTHIAZIDE PO SCH (08:29)
[2018-11-30] MEDS: COLACE PO SCH ×2 (08:29→20:57)
[2018-11-30] MEDS: COREG PO SCH ×2 (08:30→20:57)
[2018-11-30] MEDS: LASIX PO SCH ×2 (08:30→20:57)
[2018-12-01] MEDS: NORCO-10 PO PRN (00:07)
[2018-12-01] MEDS: DILAUDID IV PRN ×3 (02:52→08:27)
[2018-12-01] MEDS: XARELTO PO SCH (06:33)
[2018-12-01] MEDS: SYMBICORT 160/4.5 MICROGM INHALER INH SCH (07:34)
[2018-12-01 07:44] LABS: HEMATOCRIT 38.4 % (37.0-47.0); HEMOGLOBIN 12.2 g/dL (12.0-16.0)
--- NOTE | 2018-12-01 08:37 | ORTHOPAEDICS PROGRESS NOTE ---
DATE: 12/01/2018 SUBJECTIVE: The patient is a pleasant 48-year-old female, who is 3 days status post right total knee arthroplasty. She feels better this morning. OBJECTIVE: On physical examination, her wound looks good. There are no signs of infection. Compartments are soft. Her sensation is somewhat improved. The dorsal aspect of her foot still has no active dorsiflexion. Compartments are soft. IMPRESSION: 1. Postoperative day #3 status post right total knee arthroplasty. 2. Right peroneal neurapraxia. PLAN: At this point, the patient did better with therapy yesterday and she feels better this morning. We will plan on discharging home after physical therapy today. All questions answered. cc: Luis Galvan MD
[2018-12-01] MEDS: DIOVAN PO SCH (09:32)
[2018-12-01] MEDS: LASIX PO SCH (09:32)
[2018-12-01] MEDS: CATAPRES PO SCH (09:33)
[2018-12-01] MEDS: APRESOLINE PO SCH (09:33)
[2018-12-01] MEDS: HYDROCHLOROTHIAZIDE PO SCH (09:33)
[2018-12-01] MEDS: GLUCOPHAGE PO SCH (09:33)
[2018-12-01] MEDS: PERIDEX MT SCH (09:33)
[2018-12-01] MEDS: COLACE PO SCH (09:33)
[2018-12-01] MEDS: COREG PO SCH (09:33)
[2018-12-01] MEDS: NORVASC PO SCH (09:33)
[2018-12-01 11:24] VITALS: BP 93/51
== END 2018-12-01 11:42 | disposition home or self-care (01) | DRG 470 ==
LOC: OR 06:00 → 4N 06:00 → OBSVTOIN 10:02
PROVIDERS: ADMIT Orthopaedic Surgery Adult Reconstructive Orthopaedic Surgery; ATTEND Orthopaedic Surgery Adult Reconstructive Orthopaedic Surgery